=== PATIENT | female | born 1985 | race Caucasian/White ===

== ENCOUNTER 2016-12-07 17:11 | Inpatient (IN) | payer OTHER ==
[~2016-12-07] VITALS: Ht 172.7 cm; Wt 62.0 kg
[~2016-12-07 17:11] MED LIST: BACT800T5 PO; CHLO25CA2 PO; IBUP-232 PO; LORA-475 PO; SERT-129 PO; VIST25CA PO; ZIPR20 PO
[2016-12-07 17:44] VITALS: BP 89/54; PULSE 93; RESP 18; TEMP 98.1; O2SAT 96
[2016-12-07] MEDS ORDERED: SODIUM CHLOR 0.9% 1000 ML INJ 1,000 ML IV ONE (17:45)
[2016-12-07] MEDS ORDERED: SODIUM CHLORIDE 0.9% FLUSH 5 ML FLUSH IVF PRN (17:45)
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
[2016-12-07 18:50] VITALS: BP 99/64; PULSE 95; RESP 18; O2SAT 98
[2016-12-07 19:36] VITALS: BP 99/64; PULSE 105; RESP 20; O2SAT 97
[2016-12-07 19:50] VITALS: PULSE 105; RESP 20; O2SAT 97
[2016-12-07 19:59] LABS: BASOPHIL % 0.4 % (0.0-2.0); EOSINOPHIL # 0.1 TH/MM3 (0-0.4); EOSINOPHIL % 1.5 % (0.0-4.0); HEMATOCRIT 37.8 % (35.0-46.0); LYMPHOCYTE # 1.5 TH/MM3 (1.0-4.8); MEAN CELL VOLUME 93.9 FL (80.0-100.0); MEAN CORPUSCULAR HEMOGLOBIN 32.7 PG (27.0-34.0); MEAN CORPUSCULAR HGB CONC 34.8 % (32.0-36.0); MONO % 5.3 % (0.0-8.0); NEUT % 71.8 % (16.0-70.0); PLATELET COUNT 204 TH/MM3 (150-450); RED BLOOD COUNT 4.03 MIL/MM3 (4.00-5.30); RED CELL DISTRIBUTION WIDTH 13.3 % (11.6-17.2)
[2016-12-07 20:01] LABS: HEMO FLAGS AUTO DIFF
[2016-12-07 20:13] LABS: BLOOD, URINE NEG (NEG); GLUCOSE,URINE NEG (NEG); KETONE, URINE NEG (NEG); NITRITE,URINE NEG (NEG); PH, URINE 6.5 (5.0-8.5); SQUAMOUS EPITHELIAL CELL URINE 1 /hpf (0-5); URINE COLOR LIGHT-YELLOW (YELLW/STRAW)
[2016-12-07 20:14] LABS: COMMENT (UR) CATH-CULT NOT IND; CULTURE IF INDICATED CATH CULTURE NOT IND
[2016-12-07 20:15] LABS: ANION GAP 13 MEQ/L (5-15); AST (GOT) 326 U/L (15-37); BICARBONATE 25.2 MEQ/L (21.0-32.0); BLOOD UREA NITROGEN 6 MG/DL (7-18); CHLORIDE 105 MEQ/L (98-107); GLOMERULAR FILTRATION RATE 106 ML/MIN (>89); POTASSIUM 3.7 MEQ/L (3.5-5.1); SODIUM (NA) 143 MEQ/L (136-145)
--- NOTE | 2016-12-07 20:16 | RADRPT ---
EXAM DATE/TIME: 12/07/2016 20:06 [place] COMPARISON: CT BRAIN W/O CONTRAST, June 10, 2015, 2:16. INDICATIONS : Altered mental status, possible overdose. RADIATION DOSE: 51.26 CTDIvol (mGy) MEDICAL HISTORY : None SURGICAL HISTORY : None. ENCOUNTER: Initial ACUITY: 1 day PAIN SCALE: Non-responsive LOCATION: Bilateral head TECHNIQUE: Multiple contiguous axial images were obtained of the head. Using automated exposure control and adj ustment of the mA and/or kV according to patient size, radiation dose was kept as low as reasonably a chievable to obtain optimal diagnostic quality images. FINDINGS: CEREBRUM: The ventricles are normal for age. No evidence of midline shift, mass lesion, hemorrhage or acute in farction. No extra-axial fluid collections are seen. POSTERIOR FOSSA: The cerebellum and brainstem are intact. The 4th ventricle is midline. The cerebellopontine angle i s unremarkable. EXTRACRANIAL: The visualized portion of the orbits is intact. SKULL: The calvaria is intact. No evidence of skull fracture. CONCLUSION: Unremarkable noncontrast CT. Ruddy Maguire MD on December 07, 2016 at 20:14 Board Certified Radiologist. This report was verified electronically.
[2016-12-07 20:18] LABS: ALKALINE PHOSPHATASE 111 U/L (45-117); ALT (GPT) 280 U/L (10-53); TOTAL BILIRUBIN ADULT 0.7 MG/DL (0.2-1.0)
[2016-12-07 20:24] LABS: ACETAMINOPHEN LESS THAN 2.0 MCG/ML (10.0-30.0); APTT (PATIENT) 24.5 SEC (24.3-30.1); INTERNATIONAL NORMALIZED RATIO 0.9 RATIO; PROTHROMBIN TIME - PATIENT 10.2 SEC (9.8-11.6)
[2016-12-07 20:35] LABS: BLOOD GAS BASE EXCESS 3.2 mmol/L (-2-2); BLOOD GAS CARBOXYHEMOGLOBIN 1.9 % (0-4); BLOOD GAS HCO3 27 mmol/L (22-26); BLOOD GAS METHEMOGLOBIN 1.6 % (0-2); BLOOD GAS O2 HGB SATURATION 94 % (90-100); BLOOD GAS OXYGEN CONTENT 15.6 Vol % (12.0-20.0); BLOOD GAS PCO2 43 mmHg (38-42); BLOOD GAS PO2 85 mmHG (61-120); BLOOD GAS TOTAL HGB 11.8 G/DL (12.0-16.0); CRITICAL VALUE NO; DRAW SITE RT RADIAL; FIO2 21 %; NUMBER OF ARTERIAL PUNCTURES 2; OXYGEN DEVICE ROOM AIR; STAT YES; TEMP CORR TO 98.6; ULNAR PULSE PRESENT
[2016-12-07 20:35] LABS: AMPHETAMINE, URINE POS (NEG); BARBITURATES, URINE NEG (NEG); COCAINE, URINE POS (NEG)
[2016-12-07 21:11] LABS: PLATELET ESTIMATE SMEAR NORMAL (NORMAL); PLATELET MORPHOLOGY NORMAL (NORMAL); SCAN/DIFF AUTO DIFF CONFIRMED
[2016-12-07] MEDS ORDERED: NALOXONE HCL 0.4 MG/ML AMP IV PRN (21:45)
[2016-12-07] MEDS ORDERED: SODIUM CHLORIDE 0.9% FLUSH 5 ML FLUSH FLUSH PRN (21:45)
[2016-12-07 23:15] VITALS: BP 107/78; PULSE 92; RESP 20; O2SAT 98
[2016-12-08] VITALS (7 sets, daily range): BP systolic 102–114; BP diastolic 62–71; PULSE 85–99; RESP 17–20; TEMP 98.2–99; O2SAT 96–98
[2016-12-08] MEDS: SODIUM CHLOR 0.9% 1000 ML INJ 1,000 ML IV SCH ×2 (01:29→09:21)
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
[2016-12-08 05:46] LABS: BASOPHIL % 0.4 % (0.0-2.0); EOSINOPHIL % 0.6 % (0.0-4.0); HEMATOCRIT 33.9 % (35.0-46.0); HEMO FLAGS DIFF FINAL; LYMPH % 20.2 % (9.0-44.0); LYMPHOCYTE # 1.1 TH/MM3 (1.0-4.8); MEAN CELL VOLUME 94.2 FL (80.0-100.0); MEAN CORPUSCULAR HEMOGLOBIN 32.2 PG (27.0-34.0); MEAN CORPUSCULAR HGB CONC 34.2 % (32.0-36.0); MONO % 8.2 % (0.0-8.0); NEUT % 70.6 % (16.0-70.0); PLATELET COUNT 189 TH/MM3 (150-450); RED CELL DISTRIBUTION WIDTH 13.3 % (11.6-17.2); WHITE BLOOD COUNT 5.6 TH/MM3 (4.0-11.0)
[2016-12-08 06:26] LABS: ALKALINE PHOSPHATASE 93 U/L (45-117); ALT (GPT) 215 U/L (10-53); ANION GAP 8 MEQ/L (5-15); AST (GOT) 233 U/L (15-37); BICARBONATE 26.7 MEQ/L (21.0-32.0); BLOOD UREA NITROGEN 7 MG/DL (7-18); CHLORIDE 109 MEQ/L (98-107); GLOMERULAR FILTRATION RATE 118 ML/MIN (>89); POTASSIUM 3.7 MEQ/L (3.5-5.1); SODIUM (NA) 144 MEQ/L (136-145); TOTAL BILIRUBIN ADULT 0.8 MG/DL (0.2-1.0)
[2016-12-08] MEDS ORDERED: FLUMAZENIL 1 MG/10 ML VIAL IV PUSH PRN (08:45)
[2016-12-08] MEDS ORDERED: LORazepam 2 MG TAB PO PRN (08:45)
[2016-12-08] MEDS ORDERED: MAGNESIUM HYDROXIDE SUSP 30 ML CUP PO PRN ×2 (08:45)
[2016-12-08] MEDS ORDERED: LORazepam 2 MG/ML VIAL IV PUSH PRN ×4 (08:45)
[2016-12-08] MEDS ORDERED: CALCIUM CARBONATE 500 MG CHEWABLE TAB CHEW PRN (08:45)
[2016-12-08] MEDS ORDERED: DOCUSATE SODIUM 50 MG/SENNA 8.6 MG TAB PO PRN (08:45)
[2016-12-08] MEDS ORDERED: LORazepam 1 MG TAB PO PRN (08:45)
[2016-12-08] MEDS ORDERED: DOCUSATE SODIUM 100 MG CAP PO PRN ×2 (08:45)
[2016-12-08] MEDS ORDERED: HALOPERIDOL LACTATE 5 MG/ML AMP IM PRN (08:45)
[2016-12-08] MEDS ORDERED: ALUMINUM/MAGNESIUM/SIMETH 30 ML CUP PO PRN (08:45)
[2016-12-08] MEDS ORDERED: ONDANSETRON HCL 4 MG/2 ML VIAL IV PRN (08:45)
[2016-12-08] MEDS ORDERED: ONDANSETRON HCL 4 MG/2 ML VIAL IVP PRN (08:45)
[2016-12-08] MEDS ORDERED: BISACODYL 10 MG SUPP PR PRN (08:45)
[2016-12-08] MEDS ORDERED: IBUPROFEN 400 MG TAB PO PRN (08:45)
[2016-12-08] MEDS ORDERED: MULTIVITAMINS/MINERALS THERAPEUTIC TAB PO SCH (09:00)
[2016-12-08] MEDS ORDERED: SODIUM CHLORIDE 0.9% FLUSH 5 ML FLUSH FLUSH SCH (09:00)
[2016-12-08] MEDS ORDERED: THIAMINE HCL 100 MG TAB PO SCH (09:00)
[2016-12-08] MEDS ORDERED: FOLIC ACID 1 MG TAB PO SCH (09:00)
[2016-12-08] MEDS ORDERED: VITA100T2 PO (11:16)
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
--- NOTE | 2016-12-08 14:12 | EKG ---
Date Performed: 12/07/2016 Time Performed: 19:34:56 PTAGE: 31 years EKG: Sinus rhythm BORDERLINE RIGHT AXIS DEVIATION BORDERLINE ECG Since PREVIOUS TRACING , no significant change noted PREVIOUS TRACIN09/28/2016 17.44 DOCTOR: Luciano Ashby Interpretating Date/Time 12/08/2016 14:02:24
== END 2016-12-08 11:48 | DRG 93 ==
LOC: NEPA 17:11 → NEDA 21:40 → NEPGCP 12-08 02:55
PROVIDERS: ADMIT Internal Medicine; ATTEND Internal Medicine
DX: G92 Toxic encephalopathy (principal); I95.9 Hypotension, unspecified; F10.20 Alcohol dependence, uncomplicated; F11.10 Opioid abuse, uncomplicated; F14.10 Cocaine abuse, uncomplicated; F19.10 Other psychoactive substance abuse, uncomplicated; Y90.6 Blood alcohol level of 120-199 mg/100 ml; R74.0 Nonspecific elevation of levels of transaminase and lactic acid dehydrogenase [LDH]; F41.9 Anxiety disorder, unspecified; F32.9 Major depressive disorder, single episode, unspecified; S00.81XA Abrasion of other part of head, initial encounter; F15.10 Other stimulant abuse, uncomplicated; Z98.82 Breast implant status; Z91.5 Personal history of self-harm
CPT/HCPCS: 36600; 70450; 80053; 80074; 80307; 80320; 80329; 81001; 82805; 84703; 85025; 85610; 85730; 93005; 96374; G0480; J7030; P9612

== ENCOUNTER 2017-02-21 13:43 | Emergency (ER) | payer OTHER ==
[~2017-02-21] VITALS: Ht 172.7 cm; Wt 65.0 kg
[~2017-02-21 13:43] MED LIST changes: +VITA100T2 PO
[2017-02-21 13:45] VITALS: BP 119/75; PULSE 104; RESP 20; TEMP 97.8; O2SAT 95
[2017-02-21 13:50] VITALS: BP 104/66; PULSE 83; RESP 15; TEMP 98.4; O2SAT 97
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
== END 2017-02-21 16:37 | disposition home or self-care (01) ==
LOC: NEPE 13:43
DX: R07.81 Pleurodynia (principal); M53.3 Sacrococcygeal disorders, not elsewhere classified; Y09 Assault by unspecified means
CPT/HCPCS: 71010; 71101; 71120; 72220; 84703; 99283

== ENCOUNTER 2017-05-08 10:04 | Emergency (ER) | payer SELFPAY ==
[~2017-05-08] VITALS: Ht 172.7 cm; Wt 65.0 kg
[2017-05-08] MEDS ORDERED: SODIUM CHLOR 0.9% 1000 ML INJ 1,000 ML IV ONE (10:08)
[2017-05-08 10:12] VITALS: BP 121/77; PULSE 90; RESP 16; RESP 18; TEMP 98.2; O2SAT 98; O2SAT 99
[2017-05-08] MEDS ORDERED: SODIUM CHLORIDE 0.9% FLUSH 10 ML FLUSH IVF PRN (10:15)
[2017-05-08] MEDS ORDERED: METOCLOPRAMIDE HCL 10 MG/2 ML VIAL IV PUSH ONE (10:45)
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
[2017-05-08 10:47] LABS: AUTOMATED NEUTROPHIL # 2.7 TH/MM3 (1.8-7.7); BASOPHIL % 0.9 % (0.0-2.0); HEMATOCRIT 35.4 % (35.0-46.0); HEMO FLAGS DIFF FINAL; LYMPH % 32.7 % (9.0-44.0); LYMPHOCYTE # 1.6 TH/MM3 (1.0-4.8); MEAN CELL VOLUME 94.8 FL (80.0-100.0); MEAN CORPUSCULAR HEMOGLOBIN 30.8 PG (27.0-34.0); MEAN CORPUSCULAR HGB CONC 32.5 % (32.0-36.0); MONO % 10.3 % (0.0-8.0); NEUT % 55.1 % (16.0-70.0); PLATELET COUNT 239 TH/MM3 (150-450); RED BLOOD COUNT 3.73 MIL/MM3 (4.00-5.30); RED CELL DISTRIBUTION WIDTH 13.7 % (11.6-17.2); WHITE BLOOD COUNT 4.9 TH/MM3 (4.0-11.0)
[2017-05-08 10:58] LABS: AMPHETAMINE, URINE NEG (NEG); BARBITURATES, URINE NEG (NEG); BLOOD, URINE NEG (NEG); COCAINE, URINE POS (NEG); GLUCOSE,URINE NEG (NEG); KETONE, URINE NEG (NEG); NITRITE,URINE NEG (NEG); SQUAMOUS EPITHELIAL CELL URINE <1 /hpf (0-5); TRANSITIONAL EPI CELLS, URINE <1 /hpf; URINE COLOR LIGHT-YELLOW (YELLW/STRAW)
[2017-05-08 10:59] LABS: COMMENT (UR) CATH-CULT NOT IND; CULTURE IF INDICATED CATH CULTURE NOT IND
[2017-05-08 11:11] LABS: ALT (GPT) 143 U/L (10-53)
[2017-05-08 11:13] LABS: ACETAMINOPHEN LESS THAN 2.0 MCG/ML (10.0-30.0); ALKALINE PHOSPHATASE 85 U/L (45-117); TOTAL BILIRUBIN ADULT 0.7 MG/DL (0.2-1.0)
[2017-05-08 11:20] LABS: ANION GAP 13 MEQ/L (5-15); AST (GOT) 178 U/L (15-37); BICARBONATE 25.1 MEQ/L (21.0-32.0); BLOOD UREA NITROGEN 9 MG/DL (7-18); CHLORIDE 103 MEQ/L (98-107); GLOMERULAR FILTRATION RATE 90 ML/MIN (>89); SODIUM (NA) 141 MEQ/L (136-145)
[2017-05-08 11:25] VITALS: BP 111/72; PULSE 75; RESP 18; O2SAT 100
[2017-05-08 11:26] LABS: POTASSIUM 3.8 MEQ/L (3.5-5.1)
[2017-05-08 13:27] VITALS: BP 112/72; PULSE 78; RESP 18; O2SAT 98
[2017-05-08 14:43] VITALS: BP 127/85; TEMP 98.3
--- NOTE | 2017-05-09 09:47 | EKG ---
Date Performed: 05/08/2017 Time Performed: 10:13:36 PTAGE: 31 years EKG: Sinus rhythm INCOMPLETE RIGHT BUNDLE BRANCH BLOCK PROLONGED QT INTERVAL ABNORMAL ECG PREVIOUS TRACING : 12/07/2016 19.34 DOCTOR: Zackary Yoon Interpretating Date/Time 05/09/2017 09:38:37
== END 2017-05-08 15:04 | disposition home or self-care (01) ==
LOC: NEPC 10:04
DX: F19.129 Other psychoactive substance abuse with intoxication, unspecified (principal); I45.10 Unspecified right bundle-branch block; Z72.89 Other problems related to lifestyle; R11.0 Nausea
CPT/HCPCS: 80053; 80307; 81001; 84703; 85025; 93005; 96374; 99284; J2765; J7030

== ENCOUNTER 2017-06-03 18:27 | Emergency (ER) | payer SELFPAY | END 2017-06-03 19:00 | disposition left against medical advice (07) | LOC: NEDAMB 18:27 | DX: M25.531 Pain in right wrist (principal); Z53.29 Procedure and treatment not carried out because of patient's decision for other reasons | CPT/HCPCS: 99281 ==

== ENCOUNTER 2017-12-01 06:22 | Inpatient (IN) | payer SELFPAY ==
[~2017-12-01] VITALS: Ht 172.7 cm; Wt 71.2 kg
[2017-12-01] VITALS (11 sets, daily range): BP systolic 103–127; BP diastolic 58–78; PULSE 81–112; RESP 16–20; TEMP 98.3–103.1; O2SAT 97–100
[2017-12-01] MEDS ORDERED: SODIUM CHLOR 0.9% 1000 ML INJ 800 ML IV ONE (06:34)
[2017-12-01] MEDS ORDERED: SODIUM CHLOR 0.9% 1000 ML INJ 1,000 ML IV ONE ×2 (06:34→13:00)
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
[2017-12-01] MEDS ORDERED: ONDANSETRON HCL 4 MG/2 ML VIAL IV PUSH ONE ×2 (06:45→13:00)
[2017-12-01] MEDS ORDERED: VANCOMYCIN INJ 1,000 MG in SODIUM CHLOR 0.9% 250 ML INJ 250 ML IV ONE (06:45)
[2017-12-01] MEDS ORDERED: ACETAMINOPHEN 325 MG TAB PO ONE ×2 (06:45→14:15)
[2017-12-01 07:02] LABS: AUTOMATED NEUTROPHIL # 4.3 TH/MM3 (1.8-7.7); BASOPHIL % 0.5 % (0.0-2.0); EOSINOPHIL % 0.1 % (0.0-4.0); HEMATOCRIT 37.8 % (35.0-46.0); HEMOGLOBIN 12.7 GM/DL (11.6-15.3); LYMPH % 10.5 % (9.0-44.0); LYMPHOCYTE # 0.5 TH/MM3 (1.0-4.8); MEAN CELL VOLUME 87.9 FL (80.0-100.0); MEAN CORPUSCULAR HEMOGLOBIN 29.5 PG (27.0-34.0); MEAN CORPUSCULAR HGB CONC 33.6 % (32.0-36.0); MEAN PLATELET VOLUME 7.7 FL (7.0-11.0); MONO % 6.7 % (0.0-8.0); MONOCYTE # 0.3 TH/MM3 (0-0.9); NEUT % 82.2 % (16.0-70.0); PLATELET COUNT 140 TH/MM3 (150-450); WHITE BLOOD COUNT 5.1 TH/MM3 (4.0-11.0)
[2017-12-01 07:10] LABS: CHLORIDE 98 MEQ/L (98-107); SODIUM (NA) 132 MEQ/L (136-145)
[2017-12-01 07:13] LABS: ALBUMIN 3.2 GM/DL (3.4-5.0); BICARBONATE 25.6 MEQ/L (21.0-32.0); BLOOD UREA NITROGEN 9 MG/DL (7-18); CALCIUM 8.5 MG/DL (8.5-10.1); GLUCOSE,RANDOM 132 MG/DL (74-106); INTERNATIONAL NORMALIZED RATIO 1.1 RATIO
[2017-12-01 07:16] LABS: ALT (GPT) 33 U/L (10-53); AST (GOT) 47 U/L (15-37); CREATININE 0.64 MG/DL (0.50-1.00); GLOMERULAR FILTRATION RATE 107 ML/MIN (>89)
[2017-12-01 07:18] LABS: TOTAL BILIRUBIN ADULT 0.5 MG/DL (0.2-1.0); TOTAL PROTEIN 7.5 GM/DL (6.4-8.2)
[2017-12-01 07:19] LABS: ALKALINE PHOSPHATASE 122 U/L (45-117)
[2017-12-01 07:21] LABS: TROPONIN I LESS THAN 0.02 NG/ML (0.02-0.05)
[2017-12-01] MEDS ORDERED: HYDROmorphone HCL PF 2 MG/ML VIAL IV PUSH ONE ×2 (07:30→09:30)
--- NOTE | 2017-12-01 08:28 | RADRPT ---
EXAM DATE/TIME: 12/01/2017 08:13 [facility] COMPARISON: CT BRAIN W/O CONTRAST, December 07, 2016, 20:06. INDICATIONS : Cephalgia. RADIATION DOSE: 63.84 CTDIvol (mGy) MEDICAL HISTORY : Alcohol and drug abuse. SURGICAL HISTORY : Tubal ligation. ENCOUNTER: Initial ACUITY: 3 days PAIN SCALE: 10/10 LOCATION: cranial TECHNIQUE: Multiple contiguous axial images were obtained of the head. Using automated exposure control and adj ustment of the mA and/or kV according to patient size, radiation dose was kept as low as reasonably a chievable to obtain optimal diagnostic quality images. DICOM format image data is available electro nically for review and comparison. FINDINGS: CEREBRUM: The ventricles are normal for age. No evidence of midline shift, mass lesion, hemorrhage or acute in farction. No extra-axial fluid collections are seen. POSTERIOR FOSSA: The cerebellum and brainstem are intact. The 4th ventricle is midline. The cerebellopontine angle i s unremarkable. EXTRACRANIAL: The visualized portion of the orbits is intact. SKULL: The calvaria is intact. No evidence of skull fracture. CONCLUSION: No acute disease. Jacky Guevara MD on December 01, 2017 at 8:25 Board Certified Radiologist. This report was verified electronically.
--- NOTE | 2017-12-01 08:33 | RADRPT ---
EXAM DATE/TIME: 12/01/2017 07:58 [facility] COMPARISON: CHEST SINGLE AP, February 21, 2017, 15:04. INDICATIONS : Fever. MEDICAL HISTORY : None. SURGICAL HISTORY : right clavicle ENCOUNTER: Initial ACUITY: 1 day PAIN SCORE: 0/10 LOCATION: Bilateral chest FINDINGS: Minimal bilateral perihilar infiltrates are noted consistent with viral pneumonitis or minimal pulmon marbin vascular congestion. Clinical correlation is recommended. The heart is stable. CONCLUSION: Minimal bilateral perihilar infiltrates consistent with viral pneumonitis or minimal pulmonary vascul ar congestion. Clinical correlation is recommended. Jacky Guevara MD on December 01, 2017 at 8:29 Board Certified Radiologist. This report was verified electronically.
--- NOTE | 2017-12-01 08:36 | PD ---
Data Data Last Documented VS Vital Signs Date Time Temp Pulse Resp B/P (MAP) Pulse Ox O2 Delivery O2 Flow Rate FiO2 12/01/17 11:04 16 12/01/17 08:40 100.6 90 124/69 (87) 100 Room Air Orders Orders Sepsis Workup Initiated (12/01/17 ) Electrocardiogram (12/01/17 06:34) Complete Blood Count With Diff (12/01/17 06:34) Comprehensive Metabolic Panel (12/01/17 06:34) Prothrombin Time / Inr (Pt) (12/01/17 06:34) Act Partial Throm Time (Ptt) (12/01/17 06:34) Lactic Acid Sepsis Protocol (12/01/17 06:34) Ckmb (Isoenzyme) Profile (12/01/17 06:34) Troponin I (12/01/17 06:34) Urinalysis - C+S If Indicated (12/01/17 06:34) Blood Culture (12/01/17 06:34) Chest, Single Ap (12/01/17 06:34) Blood Glucose (12/01/17 06:34) Ecg Monitoring (12/01/17 06:34) Iv Access Insert/Monitor (12/01/17 06:34) Oximetry (12/01/17 06:34) Oxygen Administration (12/01/17 06:34) Acetaminophen (Tylenol) (12/01/17 06:45) Ondansetron Inj (Zofran Inj) (12/01/17 06:45) Sodium Chlor 0.9% 1000 Ml Inj (Ns 1000 M (12/01/17 06:34) Sodium Chlor 0.9% 1000 Ml Inj (Ns 1000 M (12/01/17 06:34) Westergren Sedimentation Rate (12/01/17 06:34) Influenzae A/B Antigen (12/01/17 06:34) Shoulder, Complete (>2vws) (12/01/17 ) Shoulder, Complete (>2vws) (12/01/17 ) Ct Brain W/O Iv Contrast(Rout) (12/01/17 ) Mri C Spine W&W/O Contrast (12/01/17 ) Mri L Spine W&W/O Contrast (12/01/17 ) Mri T Spine W & W/O Contrast (12/01/17 ) Mri Joint Shoulder W&W/O Contr (12/01/17 ) Mri Joint Shoulder W&W/O Contr (12/01/17 ) Vancomycin Inj (Vancomycin Inj) (12/01/17 06:45) Hydromorphone Pf Inj (Dilaudid Pf Inj) (12/01/17 07:30) Piperacil-Tazo 4.5 Gm Premix (Zosyn 4.5 (12/01/17 08:45) Hydromorphone Pf Inj (Dilaudid Pf Inj) (12/01/17 09:30) Ceftriaxone Inj (Rocephin Inj) (12/01/17 11:45) Gadodiamide Pf Inj (Omniscan Pf Inj) (12/01/17 10:30) Admit Order (Ed Use Only) (12/01/17 ) Surgical Dental Assistant / Telemetry [id number].[id number] (12/01/17 12:47) Vital Signs (Adult) Q4H (12/01/17 12:47) Diet Heart Healthy (12/01/17 Lunch) Activity Bed Rest (12/01/17 12:47) Ondansetron Inj (Zofran Inj) (12/01/17 13:00) Labs Laboratory Tests Test 12/01/17 06:40 White Blood Count 5.1 TH/MM3 Red Blood Count 4.30 MIL/MM3 Hemoglobin 12.7 GM/DL Hematocrit 37.8 % Mean Corpuscular Volume 87.9 FL Mean Corpuscular Hemoglobin 29.5 PG Mean Corpuscular Hemoglobin Concent 33.6 % Red Cell Distribution Width 12.0 % Platelet Count 140 TH/MM3 Mean Platelet Volume 7.7 FL Neutrophils (%) (Auto) 82.2 % Lymphocytes (%) (Auto) 10.5 % Monocytes (%) (Auto) 6.7 % Eosinophils (%) (Auto) 0.1 % Basophils (%) (Auto) 0.5 % Neutrophils # (Auto) 4.3 TH/MM3 Lymphocytes # (Auto) 0.5 TH/MM3 Monocytes # (Auto) 0.3 TH/MM3 Eosinophils # (Auto) 0.0 TH/MM3 Basophils # (Auto) 0.0 TH/MM3 CBC Comment AUTO DIFF Differential Comment AUTO DIFF CONFIRMED Erythrocyte Sedimentation Rate 45 mm/hr Prothrombin Time 11.0 SEC Prothromb Time International Ratio 1.1 RATIO Activated Partial Thromboplast Time 31.4 SEC Blood Urea Nitrogen 9 MG/DL Creatinine 0.64 MG/DL Random Glucose 132 MG/DL Total Protein 7.5 GM/DL Albumin 3.2 GM/DL Calcium Level 8.5 MG/DL Alkaline Phosphatase 122 U/L Aspartate Amino Transf (AST/SGOT) 47 U/L Alanine Aminotransferase (ALT/SGPT) 33 U/L Total Bilirubin 0.5 MG/DL Sodium Level 132 MEQ/L Potassium Level 3.8 MEQ/L Chloride Level 98 MEQ/L Carbon Dioxide Level 25.6 MEQ/L Anion Gap 8 MEQ/L Estimat Glomerular Filtration Rate 107 ML/MIN Lactic Acid Level 1.1 mmol/L Total Creatine Kinase 39 U/L Troponin I LESS THAN 0.02 NG/ML MDM Medical Record Reviewed: Yes Supervised Visit with ROSAMARIA: No Narrative Course CBC & BMP Diagram 12/01/17 06:40 Total Protein 7.5, Albumin 3.2 L, Calcium Level 8.5, Alkaline Phosphatase 122 H , Aspartate Amino Transf (AST/SGOT) 47 H, Alanine Aminotransferase (ALT/SGPT) 33 , Total Bilirubin 0.5 ESR 45 927AM pt unable to lay on MRI table 2/2 pain, 1mg iv hydromorphone added Last 24 hours Impressions Chest X-Ray 12/01/17 0634 Signed Impressions: Service Date/Time: Friday, December 01, 2017 07:58 - CONCLUSION: Minimal bilateral perihilar infiltrates consistent with viral pneumonitis or minimal pulmonary vascular congestion. Clinical correlation is recommended. Jacky Guevara MD Thoracic Spine MRI 12/01/17 0000 Signed Impressions: Service Date/Time: Friday, December 01, 2017 09:07 - CONCLUSION: 1. Negative MRI of the thoracic spine Hernan Arroyo MD Shoulder X-Ray 12/01/17 0000 Signed Impressions: Service Date/Time: Friday, December 01, 2017 07:58 - CONCLUSION: No acute disease. Jacky Guevara MD Shoulder X-Ray 12/01/17 0000 Signed Impressions: Service Date/Time: Friday, December 01, 2017 07:58 - CONCLUSION: No acute fracture or dislocation. Jacky Guevara MD Lumbar Spine MRI 12/01/17 0000 Signed Impressions: Service Date/Time: Friday, December 01, 2017 09:07 - CONCLUSION: 1. Small central protrusions as described above. There is no evidence of abscess. Hernan Arroyo MD Head CT 12/01/17 0000 Signed Impressions: Service Date/Time: Friday, December 01, 2017 08:13 - CONCLUSION: No acute disease. Jacky Guevara MD Cervical Spine MRI 12/01/17 0000 Signed Impressions: Service Date/Time: Friday, December 01, 2017 09:07 - CONCLUSION: Small central protrusion at C5-C6 without stenosis. There is no evidence of abscess. Hernan Arroyo MD case d/w Kaleb Elizabeth for [facility] Vanco and Zosyn started Rocephin started for possible epidural abscess however we see no sign on MR studies Sepsis Criteria SIRS Criteria (2 or more): Temp > 100.9 or < 96.8, Heart rate over 90 Diagnosis Primary Impression: SIRS (systemic inflammatory response syndrome) Additional Impression: IVDU (intravenous drug user) Admitting Information Admitting Physician Requests: Observation Fredy Gamble MD Dec 01, 2017 08:36
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
--- NOTE | 2017-12-01 08:39 | RADRPT ---
EXAM DATE/TIME: 12/01/2017 07:58 [facility] COMPARISON: SHOULDER LEFT COMPLETE (>2VWS), October 01, 2016, 12:29. INDICATIONS : Left shoulder pain, no known injury. MEDICAL HISTORY : None. SURGICAL HISTORY : None. ENCOUNTER: Initial ACUITY: 1 day PAIN SCORE: 10/10 LOCATION: Left shoulder FINDINGS: Multiple view examination of the left shoulder demonstrates no evidence of fracture or dislocation. The glenohumeral and acromioclavicular joints are maintained. There is normal range of motion betwee n internal and external rotation. Bony mineralization is normal. CONCLUSION: No acute disease. Jacky Guevara MD on December 01, 2017 at 8:36 Board Certified Radiologist. This report was verified electronically.
[2017-12-01] MEDS ORDERED: PIPERACIL-TAZO 4.5 GM PREMIX 100 ML IV ONE (08:45)
--- NOTE | 2017-12-01 09:29 | EKG ---
Date Performed: 12/01/2017 Time Performed: 07:11:30 PTAGE: 32 years EKG: SINUS TACHYCARDIA MODERATE INTRAVENTRICULAR CONDUCTION DELAY NONSPECIFIC T-WAVE ABNORMALITY ABNORMAL RHYTHM ECG PREVIOUS TRACING : 05/08/2017 10.13 DOCTOR: Zackary Yoon Interpretating Date/Time 12/01/2017 09:28:55
[2017-12-01] MEDS ORDERED: GADODIAMIDE PF 287 MG/ML 5 ML VIAL (for RAD MRI) IV PUSH ONE (10:30)
[2017-12-01] MEDS ORDERED: cefTRIAXone INJ 2,000 MG in SODIUM CHLORIDE 0.9% INJ 100 ML IV ONE (11:45)
--- NOTE | 2017-12-01 11:56 | RADRPT ---
EXAM DATE/TIME: 12/01/2017 09:07 [facility] COMPARISON: No previous studies available for comparison. INDICATIONS : Abscess. Hx od IVDA. CONTRAST: 14 cc Omniscan (gadodiamide) IV MEDICAL HISTORY : None. SURGICAL HISTORY : Rt shoulder. ENCOUNTER: Initial ACUITY: 2 day PAIN SCORE: 4/10 LOCATION: back TECHNIQUE: Multiplanar multisequence MRI of the thoracic spine was performed. FINDINGS: VERTEBRA: Normal vertebral body height. Homogeneous marrow signal. ALIGNMENT: Normal. CORD: Normal position and configuration. POST CONTRAST: No abnormal areas of contrast enhancement seen. T1-T2: Normal. T2-T3: The thecal sac has a normal diameter. No evidence of disc bulge or protrusion. T3-T4: The thecal sac has a normal diameter. No evidence of disc bulge or protrusion. T4-T5: The thecal sac has a normal diameter. No evidence of disc bulge or protrusion. T5-T6: The thecal sac has a normal diameter. No evidence of disc bulge or protrusion. T6-T7: The thecal sac has a normal diameter. No evidence of disc bulge or protrusion. T7-T8: The thecal sac has a normal diameter. No evidence of disc bulge or protrusion. T8-T9: The thecal sac has a normal diameter. No evidence of disc bulge or protrusion. T9-T10: The thecal sac has a normal diameter. No evidence of disc bulge or protrusion. T10-T11: The thecal sac has a normal diameter. No evidence of disc bulge or protrusion. T11-T12: The thecal sac has a normal diameter. No evidence of disc bulge or protrusion. T12-L1: The thecal sac has a normal diameter. No evidence of disc bulge or protrusion. CONCLUSION: 1. Negative MRI of the thoracic spine Hernan Arroyo MD on December 01, 2017 at 11:49 Board Certified Radiologist. This report was verified electronically.
--- NOTE | 2017-12-01 11:58 | RADRPT ---
EXAM DATE/TIME: 12/01/2017 09:07 [facility] COMPARISON: No previous studies available for comparison. INDICATIONS : Abscess. Hx of IVDA. CONTRAST: 14 cc Omniscan (gadodiamide) IV MEDICAL HISTORY : None. SURGICAL HISTORY : Rt shoulder. ENCOUNTER: Initial ACUITY: 2 day PAIN SCORE: 4/10 LOCATION: back TECHNIQUE: Multiplanar multisequence MRI of the lumbar spine was performed with and without contrast. FINDINGS: Sagittal images demonstrate normal vertebral body alignment and curvature. No focal areas of marrow r eplacement are identified. The conus terminates normally. Axial images were performed from T12-L1 thr ough L5-S1. T12-L1: No significant abnormalities identified. L1-L2: No significant abnormalities identified. L2-L3: No significant abnormalities identified. L3-L4: A central disc protrusion is present impinging on the thecal sac. There is no significant spinal latha l stenosis. L4-L5: No significant abnormalities identified. L5-S1: A small central protrusion is present impinging on the thecal sac but not significantly deforming the cord. CONCLUSION: 1. Small central protrusions as described above. There is no evidence of abscess. Hernan Arroyo MD on December 01, 2017 at 11:54 Board Certified Radiologist. This report was verified electronically.
--- NOTE | 2017-12-01 12:02 | RADRPT ---
EXAM DATE/TIME: 12/01/2017 09:07 [facility] COMPARISON: No previous studies available for comparison. INDICATIONS : Abscess. Hx IVDA. CONTRAST: 14 cc Omniscan (gadodiamide) IV MEDICAL HISTORY : None. SURGICAL HISTORY : Rt shoulder. ENCOUNTER: Initial ACUITY: 2 day PAIN SCORE: 4/10 LOCATION: neck TECHNIQUE: Multiplanar, multisequence MRI examination of the cervical spine was performed. FINDINGS: MRI of the cervical spine was performed in sagittal and axial planes. There is straightening of the n ormal cervical lordosis which may be secondary positioning or spasm. No focal areas of marrow replace ment are identified. The craniocervical junction appears normal. The cord itself is normal in caliber and signal intensity. Axial images were performed from C2-C3 through C7-T1. Following the administra tion of contrast no abnormal enhancement is identified. C2-C3: No significant abnormalities identified. C3-C4: No significant abnormalities identified. C4-C5: No significant abnormalities identified. C5-C6: A central disc protrusion is present impinging on the thecal sac. There is no significant spinal latha l stenosis. C6-C7: No significant abnormalities identified. C7-T1: No significant abnormalities identified. CONCLUSION: Small central protrusion at C5-C6 without stenosis. There is no evidence of abscess. Hernan Arroyo MD on December 01, 2017 at 11:56 Board Certified Radiologist. This report was verified electronically.
[2017-12-01] MEDS ORDERED: diphenhydrAMINE HCL 50 MG/ML VIAL IV PUSH ONE (13:00)
[2017-12-01] MEDS ORDERED: KETOROLAC TROMETHAMINE 30 MG/ML (IVP) VIAL IV PUSH ONE (13:00)
[2017-12-01] MEDS ORDERED: PROCHLORPERAZINE INJ 10 MG/2 ML VIAL IV PUSH ONE (13:00)
[2017-12-01] MEDS ORDERED: NALOXONE HCL 0.4 MG/ML AMP IV PUSH PRN (14:45)
--- NOTE | 2017-12-01 14:54 | HHI.HP ---
HPI Service [facility] Primary Care Physician No Primary Care Physician Admission Diagnosis SIRS; Poss PNA; IVDU Diagnoses: Chief Complaint: Reviewed in the EMR Travel History International Travel<30 Days: No Contact w/Intl Traveler <30 Da: No Traveled to Known Affected Are: No History of Present Illness This patient is a 32-year-old female with minimal past medical history. She reports 3 days of nausea, vomiting, chills and myalgias worsen the left shoulder and left leg. She had a headache. She tried some TheraFlu for 1 day without improvement. She came to the emergency room where she was febrile temperature was 102. Patient does not have a white cell count but does have cough and congestion on exam as well as x-ray that is concerning for pneumonitis. Patient has a negative flu and has been recommended for observation due to her fever with history of drug use. She also reports left shoulder pain and inability to move the shoulder. Spinal x-rays are negative and CT of the head and neck are negative. Patient recommended for further evaluation treatment Review of Systems Constitutional: DENIES: Diaphoretic episodes, Fatigue, Fever, Weight gain, Weight loss, Chills, Dizziness, Change in appetite, Night Sweats Endocrine: DENIES: Abnorml menstrual pattern, Heat/cold intolerance, Polydipsia , Polyuria, Polyphagia Eyes: DENIES: Blurred vision, Diplopia, Eye inflammation, Eye pain, Vision loss , Photosensitivity, Double Vision Ears, nose, mouth, throat: DENIES: Tinnitus, Hearing loss, Vertigo, Nasal discharge, Oral lesions, Throat pain, Hoarseness, Ear Pain, Running Nose, Epistaxis, Sinus Pain, Toothache, Odynophagia Respiratory: DENIES: Apneas, Cough, Snoring, Wheezing, Hemoptysis, Sputum production, Shortness of breath Cardiovascular: DENIES: Chest pain, Palpitations, Syncope, Dyspnea on Exertion , PND, Lower Extremity Edema, Orthopnea, Claudication Gastrointestinal: DENIES: Abdominal pain, Black stools, Bloody stools, Constipation, Diarrhea, Nausea, Vomiting, Difficulty Swallowing, Anorexia Genitourinary: DENIES: Abnormal vaginal bleeding, Dysmenorrhea, Dyspareunia, Sexual dysfunction, Urinary frequency, Urinary incontinence, Urgency, Hematuria , Dysuria, Nocturia, Vaginal discharge Musculoskeletal: COMPLAINS OF: Joint pain, DENIES: Muscle aches, Stiffness, Joint Swelling, Back pain, Neck pain Integumentary: DENIES: Abnormal pigmentation, Pruritus, Rash, Nail changes, Breast masses, Breast skin changes, Nipple discharge Hematologic/lymphatic: DENIES: Bruising, Lymphadenopathy Immunologic/allergic: DENIES: Eczema, Urticaria Neurologic: DENIES: Abnormal gait, Headache, Localized weakness, Paresthesias, Seizures, Speech Problems, Tremor, Poor Balance Except as stated in HPI: all other systems reviewed are Neg Past Family Social History Past Medical History Denies Past Surgical History Denies Reported Medications Denies Allergies: Coded Allergies: No Known Allergies (Verified Allergy, Unknown, 12/01/17) Active Ordered Medications Reviewed in the EMR Family History Patient does not know Social History Alcohol daily, IV Dilaudid use illicitly Occasional crack and cocaine Unemployed and not in school Physical Exam Vital Signs Vital Signs Date Time Temp Pulse Resp B/P (MAP) Pulse Ox O2 Delivery O2 Flow Rate FiO2 12/01/17 14:15 102.5 95 16 127/75 (92) 98 12/01/17 14:10 12/01/17 14:05 103.1 110 16 114/72 (86) 99 Room Air 12/01/17 13:05 98 16 103/58 (73) 100 Room Air 12/01/17 12:05 98.3 104 16 114/78 (90) 100 Room Air 12/01/17 11:05 82 16 105/65 (78) 97 Room Air 12/01/17 11:04 16 12/01/17 08:41 16 12/01/17 08:40 100.6 90 16 124/69 (87) 100 Room Air 12/01/17 07:00 102 18 99 Room Air 12/01/17 07:00 102.2 102 18 119/71 (87) 99 Room Air 12/01/17 07:00 99 Room Air 12/01/17 07:00 18 99 Room Air 12/01/17 06:49 102.2 112 18 117/71 (86) 99 Room Air 12/01/17 06:32 18 12/01/17 06:25 102.8 112 18 118/73 (88) 99 Physical Exam GENERAL: This is a well-nourished, well-developed patient, feels ill SKIN: No rashes, ecchymoses or lesions. Cool and dry. HEAD: Atraumatic. Normocephalic. No temporal or scalp tenderness. EYES: Pupils equal round and reactive. Extraocular motions intact. No scleral icterus. No injection or drainage. ENT: Nose without bleeding, purulent drainage or septal hematoma. Throat without erythema, tonsillar hypertrophy or exudate. Uvula midline. Airway patent. NECK: Trachea midline. No JVD or lymphadenopathy. Supple, nontender, no meningeal signs. CARDIOVASCULAR: Regular rate and rhythm without murmurs, gallops, or rubs. RESPIRATORY: Clear to auscultation. Breath sounds equal bilaterally. No wheezes , rales, or rhonchi. GASTROINTESTINAL: Abdomen soft, non-tender, nondistended. No hepato-splenomegaly , or palpable masses. No guarding. MUSCULOSKELETAL: Complaining of left shoulder pain Extremities without clubbing , cyanosis, or edema. No joint tenderness, effusion, or edema noted. No calf tenderness. Negative Homans sign bilaterally. NEUROLOGICAL: Awake and alert. Cranial nerves II through XII intact. Motor and sensory grossly within normal limits. Five out of 5 muscle strength in all muscle groups. Normal speech. Laboratory Laboratory Tests Test 12/01/17 06:40 White Blood Count 5.1 Red Blood Count 4.30 Hemoglobin 12.7 Hematocrit 37.8 Mean Corpuscular Volume 87.9 Mean Corpuscular Hemoglobin 29.5 Mean Corpuscular Hemoglobin Concent 33.6 Red Cell Distribution Width 12.0 Platelet Count 140 Mean Platelet Volume 7.7 Neutrophils (%) (Auto) 82.2 Lymphocytes (%) (Auto) 10.5 Monocytes (%) (Auto) 6.7 Eosinophils (%) (Auto) 0.1 Basophils (%) (Auto) 0.5 Neutrophils # (Auto) 4.3 Lymphocytes # (Auto) 0.5 Monocytes # (Auto) 0.3 Eosinophils # (Auto) 0.0 Basophils # (Auto) 0.0 CBC Comment AUTO DIFF Differential Comment AUTO DIFF CONFIRMED Erythrocyte Sedimentation Rate 45 Prothrombin Time 11.0 Prothromb Time International Ratio 1.1 Activated Partial Thromboplast Time 31.4 Blood Urea Nitrogen 9 Creatinine 0.64 Random Glucose 132 Total Protein 7.5 Albumin 3.2 Calcium Level 8.5 Alkaline Phosphatase 122 Aspartate Amino Transf (AST/SGOT) 47 Alanine Aminotransferase (ALT/SGPT) 33 Total Bilirubin 0.5 Sodium Level 132 Potassium Level 3.8 Chloride Level 98 Carbon Dioxide Level 25.6 Anion Gap 8 Estimat Glomerular Filtration Rate 107 Lactic Acid Level 1.1 Total Creatine Kinase 39 Troponin I LESS THAN 0.02 Date/Time Source Procedure Growth Status 12/01/17 06:30 Blood Peripheral Aerobic Blood Culture Pending Received 12/01/17 06:30 Blood Peripheral Anaerobic Blood Culture Pending Received 12/01/17 06:47 Nasal Washing Influenza Types A,B Antigen (LEE) - Final NEGATIVE FOR FLU A AND B ANTIGEN.... Complete Result Diagram: 12/01/1740 12/01/1740 Imaging Last Impressions Chest X-Ray 12/01/1734 Signed Impressions: Service Date/Time: Friday, December 01, 2017 07:58 - CONCLUSION: Minimal bilateral perihilar infiltrates consistent with viral pneumonitis or minimal pulmonary vascular congestion. Clinical correlation is recommended. Jacky Guevara MD Thoracic Spine MRI 12/01/17 0000 Signed Impressions: Service Date/Time: Friday, December 01, 2017 09:07 - CONCLUSION: 1. Negative MRI of the thoracic spine Hernan Arroyo MD Shoulder X-Ray 12/01/17 0000 Signed Impressions: Service Date/Time: Friday, December 01, 2017 07:58 - CONCLUSION: No acute disease. Jacky Guevara MD Lumbar Spine MRI 12/01/17 0000 Signed Impressions: Service Date/Time: Friday, December 01, 2017 09:07 - CONCLUSION: 1. Small central protrusions as described above. There is no evidence of abscess. Hernan Arroyo MD Head CT 12/01/17 0000 Signed Impressions: Service Date/Time: Friday, December 01, 2017 08:13 - CONCLUSION: No acute disease. Jacky Guevara MD Cervical Spine MRI 12/01/17 0000 Signed Impressions: Service Date/Time: Friday, December 01, 2017 09:07 - CONCLUSION: Small central protrusion at C5-C6 without stenosis. There is no evidence of abscess. MD Sallie Anderson VTE Risk Assessment Caprinjohnny VTE Risk Assessment: Mod/High Risk (score >= 2) Caprini Risk Assessment Model Point Value = 1 Point Value = 2 Point Value = 3 Point Value = 5 Age 41-60 Minor surgery BMI > 25 kg/m2 Swollen legs Varicose veins or History of unexplained or recurrent spontaneous Oral contraceptives or hormone replacement Sepsis (< 1 month) Serious lung disease, including pneumonia (< 1 month) Abnormal pulmonary function Acute myocardial infarction Congestive heart failure (< 1 month) History of inflammatory bowel disease Medical patient at bed rest Age 61-74 Arthroscopic surgery Major open surgery (> 45 min) Laparoscopic surgery (> 45 min) Malignancy Confined to bed (> 72 hours) Immobilizing plaster cast Central venous access Age >= 75 History of VTE Family history of VTE Factor V Leiden Prothrombin [id number] Lupus anticoagulant Anticardiolipin antibodies Elevated serum homocysteine Heparin-induced thrombocytopenia Other congenital or acquired thrombophilia Stroke (< 1 month) Elective arthroplasty Hip, pelvis, or leg fracture Acute spinal cord injury (< 1 month) Prophylaxis Regimen Total Risk Factor Score Risk Level Prophylaxis Regimen 0-1 Low Early ambulation 2 Moderate Order ONE of the following: *Sequential Compression Device (SCD) *Heparin 5000 units SQ BID 3-4 Higher Order ONE of the following medications: *Heparin 5000 units SQ TID *Enoxaparin/Lovenox 40 mg SQ daily (WT < 150 kg, CrCl > 30 mL/min) *Enoxaparin/Lovenox 30 mg SQ daily (WT < 150 kg, CrCl > 10-29 mL/min) *Enoxaparin/Lovenox 30 mg SQ BID (WT < 150 kg, CrCl > 30 mL/min) AND/OR *Sequential Compression Device (SCD) 5 or more Highest Order ONE of the following medications: *Heparin 5000 units SQ TID (Preferred with Epidurals) *Enoxaparin/Lovenox 40 mg SQ daily (WT < 150 kg, CrCl > 30 mL/min) *Enoxaparin/Lovenox 30 mg SQ daily (WT < 150 kg, CrCl > 10-29 mL/min) *Enoxaparin/Lovenox 30 mg SQ BID (WT < 150 kg, CrCl > 30 mL/min) AND *Sequential Compression Device (SCD) Assessment and Plan Problem List: (1) Viral syndrome ICD Code: B34.9 - Viral infection, unspecified Plan: viral pneumonitis may be referred pain to left shoulder nsaids scheduled Follow up cultures (2) IVDU (intravenous drug user) ICD Code: F19.90 - Other psychoactive substance use, unspecified, uncomplicated Status: Acute Plan: No active skin lesions or accesses noted Continue pain management as indicated Assessment and Plan Plan of care to be determined by Hospital course Code Status Full code Dulce Bennett MD Dec 01, 2017 14:54
[2017-12-01] MEDS: SODIUM CHLOR 0.9% 1000 ML INJ 1,000 ML IV SCH (15:56)
[2017-12-01] MEDS: IBUPROFEN 600 MG TAB PO SCH ×2 (16:51→18:14)
[2017-12-01] MEDS: ENOXAPARIN SODIUM 40 MG/0.4 ML SYRINGE SQ SCH (16:52)
[2017-12-01 17:30] LABS: BILIRUBIN, URINE NEG (NEG); BLOOD, URINE NEG (NEG); GLUCOSE,URINE NEG (NEG); KETONE, URINE NEG (NEG); NITRITE,URINE NEG (NEG); URINE LEUKOCYTE ESTERASE NEG (NEG)
[2017-12-01 17:33] LABS: URINE COLOR YELLOW (YELLW/STRAW)
[2017-12-01 17:34] LABS: BACTERIA, URINE OCC /hpf; RENAL EPITHELIAL CELLS 0-5 /hpf; WBC, URINE 0-2 /hpf (0-5)
[2017-12-01] MEDS ORDERED: ACETAMINOPHEN 325 MG TAB PO PRN (18:00)
[2017-12-01] MEDS: SODIUM CHLORIDE 0.9% FLUSH 10 ML FLUSH IV FLUSH SCH (21:00)
[2017-12-02] VITALS (7 sets, daily range): BP systolic 108–140; BP diastolic 5–80; PULSE 63–94; RESP 12–18; TEMP 96.4–98.7; O2SAT 95–100
[2017-12-02] MEDS: IBUPROFEN 600 MG TAB PO SCH ×3 (00:15→12:38)
[2017-12-02] MEDS: SODIUM CHLOR 0.9% 1000 ML INJ 1,000 ML IV SCH ×2 (00:18→11:03)
[2017-12-02] MEDS: ACETAMINOPHEN/HYDROcodone 325 MG/7.5 MG TAB PO PRN ×3 (00:18→20:56)
[2017-12-02 08:28] LABS: AUTOMATED NEUTROPHIL # 6.5 TH/MM3 (1.8-7.7); BASOPHIL # 0.1 TH/MM3 (0-0.2); BASOPHIL % 0.6 % (0.0-2.0); EOSINOPHIL # 0.1 TH/MM3 (0-0.4); EOSINOPHIL % 0.6 % (0.0-4.0); HEMATOCRIT 35.7 % (35.0-46.0); HEMOGLOBIN 12.1 GM/DL (11.6-15.3); LYMPH % 13.1 % (9.0-44.0); LYMPHOCYTE # 1.1 TH/MM3 (1.0-4.8); MEAN CELL VOLUME 88.3 FL (80.0-100.0); MEAN CORPUSCULAR HEMOGLOBIN 29.9 PG (27.0-34.0); MEAN CORPUSCULAR HGB CONC 33.8 % (32.0-36.0); MEAN PLATELET VOLUME 7.2 FL (7.0-11.0); MONO % 7.7 % (0.0-8.0); MONOCYTE # 0.7 TH/MM3 (0-0.9); PLATELET COUNT 150 TH/MM3 (150-450); RED BLOOD COUNT 4.04 MIL/MM3 (4.00-5.30); RED CELL DISTRIBUTION WIDTH 12.2 % (11.6-17.2); WHITE BLOOD COUNT 8.5 TH/MM3 (4.0-11.0)
[2017-12-02 08:33] LABS: CALCIUM 8.3 MG/DL (8.5-10.1)
[2017-12-02 08:34] LABS: BICARBONATE 24.1 MEQ/L (21.0-32.0)
[2017-12-02 08:37] LABS: CREATININE 0.47 MG/DL (0.50-1.00)
[2017-12-02] MEDS: SODIUM CHLORIDE 0.9% FLUSH 10 ML FLUSH IV FLUSH SCH ×2 (08:38→20:10)
[2017-12-02 09:29] LABS: MONOSCREEN NEG (NEG)
[2017-12-02] MEDS ORDERED: Vancomycin Consult Pharmacy 1 EA OTHER SCH (09:30)
[2017-12-02] MEDS: VANCOMYCIN INJ 1,000 MG in SODIUM CHLOR 0.9% 250 ML INJ 250 ML IV SCH ×2 (11:03→17:57)
[2017-12-02] MEDS: cefTRIAXone INJ 1,000 MG in SODIUM CHLORIDE 0.9% INJ 100 ML IV SCH (12:39)
--- NOTE | 2017-12-02 13:09 | HHI.PR ---
Subjective Remarks patient now presents with 4/4 blood cultures which are positive for gram- positive cocci. Patient's been started on vancomycin and Rocephin. MAXIMUM TEMPERATURE 102. Objective Vitals Vital Signs Date Time Temp Pulse Resp B/P (MAP) Pulse Ox O2 Delivery O2 Flow Rate FiO2 12/02/17 08:00 97.9 76 14 118/80 (93) 99 12/02/17 04:00 96.4 80 16 108/68 (81) 100 12/02/17 00:00 98.1 83 16 109/68 (82) 99 12/01/17 20:00 92 12/01/17 20:00 100.3 93 20 109/68 (82) 99 12/01/17 16:00 101.8 81 16 113/65 (81) 99 12/01/17 14:15 102.5 95 16 127/75 (92) 98 12/01/17 14:10 12/01/17 14:05 103.1 110 16 114/72 (86) 99 Room Air I/O 12/01/17 12/01/17 12/01/17 12/02/17 12/02/17 12/02/17 07:00 15:00 23:00 07:00 15:00 23:00 Intake Total 2250 ml 2245 ml 1915 ml 458 ml Output Total 4000 ml 1400 ml Balance 2250 ml -1755 ml 515 ml 458 ml Intake Oral 30 ml 480 ml 458 ml IV Total 2250 ml 2215 ml 1435 ml Output Urine Total 4000 ml 1400 ml Bladder Scan Volume Amount 999 ml 350 ml 999 ml 200 ml # Bowel Movements 0 Result Diagram: 12/02/17 0807 12/02/17 0807 Objective Remarks GENERAL: This is a well-nourished, well-developed patient, in no apparent distress. CARDIOVASCULAR: Regular rate and rhythm without murmurs, gallops, or rubs. RESPIRATORY: Clear to auscultation. Breath sounds equal bilaterally. No wheezes , rales, or rhonchi. GASTROINTESTINAL: Abdomen soft, non-tender, nondistended. Normal active bowel sounds MUSCULOSKELETAL: Extremities without clubbing, cyanosis, or edema. NEURO: Alert & Oriented x4 to person, place, time, situation. Moves all ext x4 A/P Problem List: (1) IVDU (intravenous drug user) ICD Code: F19.90 - Other psychoactive substance use, unspecified, uncomplicated Status: Acute Plan: No active skin lesions or abscesses noted Continue pain management as indicated (2) Bacteremia ICD Code: R78.81 - Bacteremia Plan: High-grade bacteremia Continue vancomycin/Rocephin Echo cardiogram pending to rule out endocarditis in this high-risk patient Dulce Bennett MD Dec 02, 2017 13:09
[2017-12-02] MEDS ORDERED: IBUPROFEN 600 MG TAB PO PRN (13:15)
--- NOTE | 2017-12-02 14:11 | RADRPT ---
EXAM DATE/TIME: 12/02/2017 12:53 [facility] COMPARISON: SHOULDER RIGHT COMPLETE (>2VWS), December 01, 2017, 7:58. INDICATIONS : Abscess. Pain in bilateral shoulders. CONTRAST: 11.5 cc Omniscan (gadodiamide) IV MEDICAL HISTORY : IV drug abuse. SURGICAL HISTORY : Right shoulder fracture repair. ENCOUNTER: Initial ACUITY: 2 day PAIN SCORE: 5/10 LOCATION: Right Shoulder. TECHNIQUE: Multiplanar, multisequence MRI examination was performed without contrast. FINDINGS: Side plate and screws traverse the distal clavicle creating magnetic susceptibility artifact. No definite abscess formation or fluid collection is identified. There is no joint effusion. The rotato r cuff is difficult to evaluate. The glenoid appears intact. CONCLUSION: Post surgical changes otherwise unremarkable without evidence of abscess. Fern Freire MD on December 02, 2017 at 14:06 Board Certified Radiologist. This report was verified electronically.
--- NOTE | 2017-12-02 17:35 | MB ---
cc: JAMILA SNOWDEN MD DATE OF CONSULTATION 12/02/[address] Bennett REASON FOR CONSULTATION Bacteremia/fever. IVDU. HISTORY OF PRESENT ILLNESS This is a 32-year-old white female who uses IV drugs. The patient presented to the emergency department yesterday with complaints of fever, headache, generalized malaise, bilateral shoulder pain and nausea. The patient's symptoms were ongoing for three days. She reports to me that she last used IV drugs three days ago injected into her neck. In the emergency department, her temperature was 102.5. Blood cultures were taken and all four bottles have gram-positive cocci with one bottle identified as staph aureus. The patient states that she still has severe aches in her shoulders. She denies chest pain. Various radiographic studies have been obtained including MRI of the lumbar and thoracic spine which are negative for abscess. MRI of the cervical spine was also negative for abscess. A shoulder MRI was performed and it shows a side plate and screws traversing the distal clavicle at the right and no definite abscess formation or fluid collection identified. A 2-D echo has been ordered. That result is not yet available. The patient's white blood cell count is normal. She is currently on intravenous antibiotics. The temperature during most of yesterday was elevated. PAST MEDICAL HISTORY Unremarkable except for shoulder repair with plates and screws. ALLERGIES NO KNOWN DRUG ALLERGIES. MEDICATIONS 1. Ceftriaxone. 2. Vancomycin. 3. Lovenox. 4. [place] 7.5. 5. Ibuprofen p.r.n. SOCIAL HISTORY No tobacco. Positive alcohol. Positive illicit drug use. The patient states she had Dilaudid injected into her neck three days ago. FAMILY HISTORY Noncontributory. REVIEW OF SYSTEMS Pertinent as mentioned above in history of present illness. Otherwise negative. PHYSICAL EXAMINATION GENERAL: This is a well-developed female who is in no acute distress. She is awake and alert. VITAL SIGNS: Temperature 97.7, BP 121/74, respirations 16, heart rate 82. HEENT: Head atraumatic. Extraocular movements grossly intact. No icterus. No conjunctival erythema. Oropharynx moist mucosa without lesions. NECK: Supple without adenopathy. LUNGS: Clear breath sounds bilateral. HEART: Slight systolic murmur at the left sternal border. ABDOMEN: Bowel sounds present, soft, no tenderness appreciated. RECTAL: Not performed. EXTREMITIES: The right shoulder has erythema at the anterior aspect along the clavicle region. This extends from the shoulder anteriorly across the right clavicle. There is also tenderness on palpation at the left clavicle. SKIN: No diffuse rash. NEUROLOGIC: Weakness of both upper extremities. The patient has difficulty lifting her left arm off the bed because of pain in her left shoulder. PSYCHIATRIC: The patient is calm and cooperative. LABORATORY DATA WBC 8.5, platelet 150, hemoglobin 12.1, ESR 45, creatinine 0.47, estimated GFR 153, AST 47, ALT 33. Urinalysis unremarkable. IMAGING STUDIES Chest x-ray shows minimal bilateral perihilar infiltrates consistent with viral pneumonitis or minimal pulmonary vascular congestion. IMPRESSION 1. Bacteremia in a patient who presented with fever. The patient is an IV drug user. Positive staph aureus in the blood cultures which is most certainly associated with IV drug use. 2. Bilateral shoulder pain. Possible septic arthritis of the shoulder. RECOMMENDATIONS 1. Continue vancomycin 2. Continue ceftriaxone. 3. Monitor the blood cultures for sensitivity of the staph aureus 4. Follow the 2-D echocardiogram 5. Obtain additional blood cultures in the next two days Thank you for this consultation. The patient's progress will be monitored. Further recommendations depending on the response of the antibiotic and whether or not there is endocarditis on the 2-D echocardiogram. Thank you for this consultation. Jamila Snowden MD FD/ /4:06 PM /4:56 PM [facility]
[2017-12-02] MEDS: ONDANSETRON HCL 4 MG/2 ML VIAL IVP PRN (17:56)
[2017-12-02] MEDS: ENOXAPARIN SODIUM 40 MG/0.4 ML SYRINGE SQ SCH (17:57)
[2017-12-03] VITALS (8 sets, daily range): BP systolic 92–134; BP diastolic 71–92; PULSE 75–91; RESP 16–18; TEMP 97.8–99.5; O2SAT 98–99
[2017-12-03] MEDS: ONDANSETRON HCL 4 MG/2 ML VIAL IVP PRN (00:06)
[2017-12-03] MEDS: VANCOMYCIN INJ 1,000 MG in SODIUM CHLOR 0.9% 250 ML INJ 250 ML IV SCH ×2 (01:10→10:10)
[2017-12-03] MEDS: ACETAMINOPHEN/HYDROcodone 325 MG/7.5 MG TAB PO PRN ×6 (01:11→23:20)
[2017-12-03] MEDS: SODIUM CHLOR 0.9% 1000 ML INJ 1,000 ML IV SCH ×2 (01:13→08:24)
[2017-12-03] MEDS: SODIUM CHLORIDE 0.9% FLUSH 10 ML FLUSH IV FLUSH SCH ×2 (08:24→20:58)
[2017-12-03] MEDS ORDERED: PHARMACY ORDERED LAB ONE ×2 (09:45→15:15)
[2017-12-03 10:06] LABS: CREATININE 0.52 MG/DL (0.50-1.00)
--- NOTE | 2017-12-03 10:49 | ECHRPT ---
Indication: CONCLUSIONS Normal left ventricular size and wall thickness. The left ventricular systolic function is normal wi th an estimated ejection fraction in the range of 60-65%. Left ventricular diastolic function parameters a re normal. BP: / HR: Rhythm: Sinus MEASUREMENTS (Male / Female) Normal Values Technical Quality:Excellent 2D ECHO LV Diastolic Diameter PLAX 5.7 cm 4.2 - 5.9 / 3.9 - 5.3 cm LV Systolic Diameter PLAX 3.5 cm IVS Diastolic Thickness 1.0 cm 0.6 - 1.0 / 0.6 - 0.9 cm LVPW Diastolic Thickness 1.0 cm 0.6 - 1.0 / 0.6 - 0.9 cm LV Relative Wall Thickness 0.3 RV Internal Dim ED PLAX 2.3 cm LVOT Diameter 2.2 cm LA Systolic Diameter LX 2.9 cm 3.0 - 4.0 / 2.7 - 3.8 cm M-MODE Aortic Root Diameter MM 2.8 cm AV Cusp Separation MM 2.1 cm DOPPLER AV Peak Velocity 115.0 cm/s AV Peak Gradient 5.3 mmHg LVOT Peak Velocity 88.4 cm/s LVOT Peak Gradient 3.1 mmHg AV Area Cont Eq pk 2.9 cm MV Area PHT 3.2 cm Mitral E Point Velocity 83.9 cm/s Mitral A Point Velocity 62.2 cm/s Mitral E to A Ratio 1.3 LV E' Lateral Velocity 10.0 cm/s Mitral E to LV E' Lateral Ratio 8.4 LV E' Septal Velocity 7.6 cm/s Mitral E to LV E' Septal Ratio 11.0 PV Peak Velocity 99.1 cm/s PV Peak Gradient 3.9 mmHg FINDINGS LEFT VENTRICLE Normal left ventricular size and wall thickness. The left ventricular systolic function is normal wi th an estimated ejection fraction in the range of 60-65%. Left ventricular diastolic function parameters a re normal. RIGHT VENTRICLE Normal right ventricular size and systolic function. LEFT ATRIUM The left atrial size is normal. RIGHT ATRIUM The right atrial size is normal. ATRIAL SEPTUM Normal atrial septal thickness without atrial level shunting by limited color doppler interrogation. AORTA The aortic root and proximal ascending aorta are normal in size on limited imaging. MITRAL VALVE Structurally normal mitral valve. No mitral valve stenosis or regurgitation. AORTIC VALVE Trileaflet aortic valve. No aortic valve stenosis or regurgitation. TRICUSPID VALVE Structurally normal tricuspid valve. No tricuspid valve stenosis or regurgitation. PULMONARY VALVE The pulmonary valve is not well visualized. VESSELS The inferior vena cava is normal in size. PERICARDIUM No pericardial effusion. Alli Cooley MD (Electronically Signed) Final Date:03 December 2017 10:49
[2017-12-03] MEDS: cefTRIAXone INJ 1,000 MG in SODIUM CHLORIDE 0.9% INJ 100 ML IV SCH (11:52)
--- NOTE | 2017-12-03 12:05 | HHI.PR ---
Subjective Remarks Patient seen and evaluated in follow-up for bacteremia, 4 out of 4 blood cultures positive likely MSSA. Patient feels better. She is complaining of constipation. She is tolerating vancomycin and Rocephin without difficulty Echocardiogram is not showing any vegetations Fever resolved Objective Vitals Vital Signs Date Time Temp Pulse Resp B/P (MAP) Pulse Ox O2 Delivery O2 Flow Rate FiO2 12/03/17 08:01 79 12/03/17 08:00 99.0 81 18 126/78 (94) 98 12/03/17 04:00 97.8 82 18 116/73 (87) 98 12/03/17 00:00 98.2 84 16 120/71 (87) 98 12/02/17 20:00 76 12/02/17 20:00 96.5 63 18 140/5 (50) 95 12/02/17 16:00 98.7 89 12 136/73 (94) 99 I/O 12/02/17 12/02/17 12/02/17 12/03/17 12/03/17 12/03/17 07:00 15:00 23:00 07:00 15:00 23:00 Intake Total 1915 ml 1128 ml 704 ml 1990 ml 920 ml Output Total 1400 ml 900 ml 1300 ml 1100 ml 1100 ml Balance 515 ml 228 ml -596 ml 890 ml -180 ml Intake Oral 480 ml 458 ml 354 ml 740 ml IV Total 1435 ml 670 ml 350 ml 1250 ml 920 ml Output Urine Total 1400 ml 900 ml 1300 ml 1100 ml 1100 ml # Bowel Movements 0 0 Result Diagram: 12/02/17 0807 12/03/17 0930 Objective Remarks GENERAL: This is a well-nourished, well-developed patient, in no apparent distress. CARDIOVASCULAR: Regular rate and rhythm without murmurs, gallops, or rubs. RESPIRATORY: Clear to auscultation. Breath sounds equal bilaterally. No wheezes , rales, or rhonchi. GASTROINTESTINAL: Abdomen soft, non-tender, nondistended. Normal active bowel sounds MUSCULOSKELETAL: Extremities without clubbing, cyanosis, or edema. NEURO: Alert & Oriented x4 to person, place, time, situation. Moves all ext x4 A/P Problem List: (1) IVDU (intravenous drug user) ICD Code: F19.90 - Other psychoactive substance use, unspecified, uncomplicated Status: Acute Plan: No active skin lesions or abscesses noted Continue pain management as indicated Avoid escalation of narcotics (2) Bacteremia ICD Code: R78.81 - Bacteremia Plan: High-grade bacteremia Continue vancomycin/Rocephin Repeat blood cultures pending today to assess for clearance ID following Discharge Planning Pending repeat cultures Dulce Bennett MD Dec 03, 2017 12:05
[2017-12-03] MEDS: guaiFENesin/DEXTROMETHORPHAN 200 MG/20 MG/10 ML CUP PO PRN (13:53)
--- NOTE | 2017-12-03 15:32 | HHI.IDPN ---
Note Infectious Disease Note Patient says that she feels a little but still feels achy all over and complains of back pain in the lower back and shoulders. Presented to the emergency department yesterday with complaints of fever, headache, generalized malaise, bilateral shoulder pain and nausea. The patient' s symptoms were ongoing for three days. She reports to me that she last used IV drugs three days ago injected into her neck. In the emergency department, her temperature was 102.5. Blood cultures were taken and all four bottles have staph aureus. PAST MEDICAL HISTORY Unremarkable except for right shoulder repair with plates and screws. ALLERGIES NO KNOWN DRUG ALLERGIES. ANTIBIOTICS 1. Ceftriaxone. 2. Vancomycin. SOCIAL HISTORY No tobacco. Positive alcohol. Positive illicit drug use. The patient states she had Dilaudid injected into her neck three days ago. FAMILY HISTORY Noncontributory. REVIEW OF SYSTEMS Pertinent as mentioned above in history of present illness. Otherwise negative. OBJECTIVE: Vital Signs Date Time Temp Pulse Resp B/P (MAP) Pulse Ox O2 Delivery O2 Flow Rate FiO2 12/03/17 12:00 99.2 80 16 117/80 (92) 99 12/03/17 08:01 79 12/03/17 08:00 99.0 81 18 126/78 (94) 98 12/03/17 04:00 97.8 82 18 116/73 (87) 98 12/03/17 00:00 98.2 84 16 120/71 (87) 98 12/02/17 20:00 76 12/02/17 20:00 96.5 63 18 140/5 (50) 95 12/02/17 16:00 98.7 89 12 136/73 (94) 99 Laboratory Tests Test 12/02/17 08:07 White Blood Count 8.5 TH/MM3 Red Blood Count 4.04 MIL/MM3 Hemoglobin 12.1 GM/DL Hematocrit 35.7 % Mean Corpuscular Volume 88.3 FL Mean Corpuscular Hemoglobin 29.9 PG Mean Corpuscular Hemoglobin Concent 33.8 % Red Cell Distribution Width 12.2 % Platelet Count 150 TH/MM3 Mean Platelet Volume 7.2 FL Neutrophils (%) (Auto) 78.0 % Lymphocytes (%) (Auto) 13.1 % Monocytes (%) (Auto) 7.7 % Eosinophils (%) (Auto) 0.6 % Basophils (%) (Auto) 0.6 % Neutrophils # (Auto) 6.5 TH/MM3 Lymphocytes # (Auto) 1.1 TH/MM3 Monocytes # (Auto) 0.7 TH/MM3 Eosinophils # (Auto) 0.1 TH/MM3 Basophils # (Auto) 0.1 TH/MM3 CBC Comment DIFF FINAL Differential Comment Laboratory Tests Test 12/02/17 08:07 12/03/17 09:30 Blood Urea Nitrogen 8 MG/DL Creatinine 0.47 MG/DL 0.52 MG/DL Random Glucose 103 MG/DL Calcium Level 8.3 MG/DL Sodium Level 137 MEQ/L Potassium Level 3.8 MEQ/L Chloride Level 104 MEQ/L Carbon Dioxide Level 24.1 MEQ/L Anion Gap 9 MEQ/L Estimat Glomerular Filtration Rate 153 ML/MIN 136 ML/MIN Microbiology Date/Time Source Procedure Growth Status 12/03/17 13:00 Blood Peripheral Aerobic Blood Culture Pending Received 12/03/17 13:00 Blood Peripheral Anaerobic Blood Culture Pending Received 12/03/17 12:45 Blood Peripheral Aerobic Blood Culture Pending Received 12/03/17 12:45 Blood Peripheral Anaerobic Blood Culture Pending Received 12/01/17 06:30 Blood Peripheral Aerobic Blood Culture - Preliminary Staphylococcus Aureus Resulted 12/01/17 06:30 Anaerobic Blood Culture - Preliminary Staphylococcus Aureus Resulted 12/01/17 06:30 Blood Peripheral Aerobic Blood Culture - Preliminary Staphylococcus Aureus Resulted 12/01/17 06:30 Anaerobic Blood Culture - Preliminary Staphylococcus Aureus Resulted 12/01/17 06:47 Nasal Washing Influenza Types A,B Antigen (LEE) - Final NEGATIVE FOR FLU A AND B ANTIGEN.... Complete IMAGING: Shoulder MRI 12/02/17 0000 Signed Impressions: Service Date/Time: November 12:53 - CONCLUSION: Post surgical changes otherwise unremarkable without evidence of abscess. Fern Freire MD Chest X-Ray 12/01/17 0634 Signed Impressions: Service Date/Time: Friday, December 01, 2017 07:58 - CONCLUSION: Minimal bilateral perihilar infiltrates consistent with viral pneumonitis or minimal pulmonary vascular congestion. Clinical correlation is recommended. Jacky Guevara MD Thoracic Spine MRI 12/01/17 0000 Signed Impressions: Service Date/Time: Friday, December 01, 2017 09:07 - CONCLUSION: 1. Negative MRI of the thoracic spine Hernan Arroyo MD Shoulder X-Ray 12/01/17 0000 Signed Impressions: Service Date/Time: Friday, December 01, 2017 07:58 - CONCLUSION: No acute disease. Jacky Guevara MD Lumbar Spine MRI 12/01/17 0000 Signed Impressions: Service Date/Time: Friday, December 01, 2017 09:07 - CONCLUSION: 1. Small central protrusions as described above. There is no evidence of abscess. Hernan Arroyo MD Head CT 12/01/17 0000 Signed Impressions: Service Date/Time: Friday, December 01, 2017 08:13 - CONCLUSION: No acute disease. Jacky Guevara MD Cervical Spine MRI 12/01/17 0000 Signed Impressions: Service Date/Time: Friday, December 01, 2017 09:07 - CONCLUSION: Small central protrusion at C5-C6 without stenosis. There is no evidence of abscess. Hernan Arroyo MD PHYSICAL EXAMINATION GENERAL: No acute distress. She is awake and alert. HEENT: Head atraumatic. Extraocular movements grossly intact. No icterus. No conjunctival erythema. Oropharynx moist mucosa without lesions. NECK: Supple without adenopathy. LUNGS: Clear breath sounds. HEART: Slight systolic murmur at the left sternal border. ABDOMEN: Bowel sounds present, soft, no tenderness. EXTREMITIES: The right shoulder has less erythema at the anterior aspect along the right clavicle region. There is also tenderness on palpation at the left clavicle. SKIN: No diffuse rash. NEUROLOGIC: Weakness of both upper extremities. Able to raise left arm better but not above ~ 25 degrees. PSYCHIATRIC: Calm and cooperative. IMPRESSION 1. Staph aureus Bacteremia in a patient who presented with fever. secondary to IV drug use. 2. IVDU. 3. Bilateral shoulder pain. Possible septic arthritis of the shoulder. RECOMMENDATIONS 1. Stop vancomycin 2. Stop ceftriaxone. 3. Begin Ancef IV. 4. Follow the new blood cultures. Further antibiotic plan depending on the new blood cultures. If positive additional blood cultures needs to be obtained. Adonis Snowden MD Dec 03, 2017 15:32
[2017-12-03] MEDS ORDERED: VANCOMYCIN INJ 1,250 MG in SODIUM CHLOR 0.9% 250 ML INJ 250 ML IV SCH (16:00)
[2017-12-03] MEDS: ENOXAPARIN SODIUM 40 MG/0.4 ML SYRINGE SQ SCH (16:56)
[2017-12-03] MEDS: ceFAZolin 2 GM PREMIX 50 ML IV SCH ×2 (16:56→23:20)
[2017-12-03] MEDS: MAGNESIUM HYDROXIDE SUSP 30 ML CUP PO PRN (18:07)
[2017-12-04 01:14] VITALS: BP 127/76; PULSE 83; RESP 16; TEMP 98; O2SAT 97
[2017-12-04] MEDS: ACETAMINOPHEN/HYDROcodone 325 MG/7.5 MG TAB PO PRN ×2 (03:54→08:07)
[2017-12-04 08:00] VITALS: BP 122/73; PULSE 79; RESP 16; TEMP 98.7; O2SAT 96
[2017-12-04] MEDS: ceFAZolin 2 GM PREMIX 50 ML IV SCH ×3 (08:00→23:57)
[2017-12-04] MEDS: SODIUM CHLORIDE 0.9% FLUSH 10 ML FLUSH IV FLUSH SCH ×2 (09:00→20:13)
[2017-12-04 12:00] VITALS: BP 108/68; PULSE 88; RESP 16; TEMP 99.4; O2SAT 97
[2017-12-04] MEDS: KETOROLAC TROMETHAMINE 60 MG/2 ML (IM) VIAL IM PRN ×2 (12:10→20:16)
[2017-12-04] MEDS: MAGNESIUM HYDROXIDE SUSP 30 ML CUP PO PRN ×2 (12:16→23:57)
--- NOTE | 2017-12-04 15:04 | HHI.PR ---
Subjective Remarks Patient seen and examined today for follow-up on bacteremia secondary to IV drug use. Patient lying in bed, resting carefully. Spoke with patient extensively about her condition, plan for treatment and duration. Patient had multiple questions concerning rehabilitation from opiate use. Patient wants to wean herself off of opiates at this time and requested that I start changing her medication. Patient states that she still has not had a bowel movement and is asking for increase bowel prep. Objective Vital Signs Date Time Temp Pulse Resp B/P (MAP) Pulse Ox O2 Delivery O2 Flow Rate FiO2 12/04/17 09:07 18 12/04/17 08:00 98.7 79 16 122/73 (89) 96 12/04/17 04:38 12/04/17 01:14 98.0 83 16 127/76 (93) 97 12/03/17 20:36 98.3 91 18 125/81 (96) 98 12/03/17 16:00 99.5 75 16 134/92 (106) 99 I/O 12/03/17 12/03/17 12/03/17 12/04/17 12/04/17 12/04/17 07:00 15:00 23:00 07:00 15:00 23:00 Intake Total 1990 ml 1340 ml 50 ml 50 ml Output Total 1100 ml 1700 ml 900 ml 1850 ml Balance 890 ml -360 ml -850 ml -1800 ml Intake Oral 740 ml IV Total 1250 ml 1340 ml 50 ml 50 ml Output Urine Total 1100 ml 1700 ml 900 ml 1850 ml # Voids 6 # Bowel Movements 0 Result Diagram: 12/02/17 0807 12/03/17 0930 Objective Remarks GENERAL: Well-developed, well-nourished, in no acute distress. alert and orientated HEENT: Head is normocephalic without any lesions or masses noted. Facial features are symmetric. Eyes: Extraocular muscles are intact. Conjunctivae were clear. NECK: Supple without any masses. Trachea midline no deviation. No JVD, CARDIAC: Regular rhythm, regular rate. S1/S2 are heard. No murmurs gallops or rubs. LUNGS: Clear to auscultation bilaterally. No wheeze, rhonchi or rales. No use of accessory muscles on inspiration or expiration. ABDOMEN: Soft, nontender. Nondistended. Bowel sounds heard in all 4 quadrants. No organomegaly or masses. Negative rebound, negative guarding EXTREMITIES: No edema, pulses are equal bilaterally. No cyanosis or clubbing NEUROLOGY: Mood and affect appear appropriate. Cranial nerves II through XII grossly intact. Moving all extremities, speech is clear A/P Assessment and Plan Bacteremia, high-grade Complicated with patient being IV drug user with Dilaudid Echocardiogram does not indicate any vegetation Blood cultures 03/02 with staph aureus Follow blood cultures negative for 1 day Patient was on vancomycin/Rocephin and now changed to Ancef Infectious disease following the patient Discuss with infectious disease about tentative treatment. He indicated if follow-up blood cultures come back negative, the patient should continue IV antibiotics for total of 10 days from negative blood culture Cannot have midline/PICC line placed until follow-up blood cultures are negative for 3 days IV drug user with opiate addiction patient wishes to be weaned off of narcotics at this time Will decrease to [place] 5 mg every 4 hours, continue to reduce dosage every 2- 3 days Counseled patient on abstaining from opiate use, outpatient rehabilitation Constipation Start Mary-Colace one tablet twice daily Milk of magnesia as needed DVT prevention Lovenox Discharge Planning Discharge planning 3-10 days, depending upon if outpatient IV antibiotics can be arranged in 3 days with PICC/midline or remaining in the hospital for the total antibody course of 10 days Jatinder Elizabeth Dec 04, 2017 15:04
[2017-12-04] MEDS ORDERED: PHARMACY ORDERED LAB ONE (15:45)
[2017-12-04 16:00] VITALS: BP 115/69; PULSE 82; RESP 16; TEMP 99.4; O2SAT 100
[2017-12-04] MEDS: DOCUSATE SODIUM 50 MG/SENNA 8.6 MG TAB PO SCH ×2 (16:30→20:13)
[2017-12-04] MEDS: ENOXAPARIN SODIUM 40 MG/0.4 ML SYRINGE SQ SCH (16:31)
[2017-12-04 19:52] LABS: PARVOVIRUS B19 IGG 8.3; PARVOVIRUS B19 IGM 0.4
[2017-12-04 20:00] VITALS: BP 116/59; PULSE 98; RESP 20; TEMP 101.1; O2SAT 99
[2017-12-04] MEDS ORDERED: ACETAMINOPHEN 325 MG TAB PO PRN (20:00)
[2017-12-04 22:15] VITALS: TEMP 100.4
[2017-12-04] MEDS: ACETAMINOPHEN/HYDROcodone 325 MG/5 MG TAB PO PRN (23:57)
[2017-12-05] VITALS: TEMP 98.7
[2017-12-05] MEDS: ACETAMINOPHEN/HYDROcodone 325 MG/5 MG TAB PO PRN ×4 (04:23→19:59)
[2017-12-05 07:04] LABS: CREATININE 0.51 MG/DL (0.50-1.00)
[2017-12-05 08:00] VITALS: BP 121/63; PULSE 91; RESP 16; TEMP 98.6; O2SAT 95
--- NOTE | 2017-12-05 08:29 | HHI.PR ---
Subjective Remarks Patient seen and examined today for follow-up on bacteremia secondary to IV drug use. Patient walking the halls, Had fever last night. still no BM, OK with enema Objective Vital Signs Date Time Temp Pulse Resp B/P (MAP) Pulse Ox O2 Delivery O2 Flow Rate FiO2 12/05/17 08:00 98.6 91 16 121/63 (82) 95 12/05/17 00:00 98.7 12/04/17 22:15 100.4 12/04/17 20:00 101.1 98 20 116/59 (78) 99 12/04/17 16:00 99.4 82 16 115/69 (84) 100 12/04/17 13:10 18 12/04/17 12:00 99.4 88 16 108/68 (81) 97 12/04/17 09:07 18 I/O 12/04/17 12/04/17 12/04/17 12/05/17 12/05/17 12/05/17 07:00 15:00 23:00 07:00 15:00 23:00 Intake Total 50 ml 900 ml 50 ml 50 ml Output Total 1850 ml 1000 ml Balance -1800 ml 900 ml 50 ml -950 ml Intake Oral 850 ml IV Total 50 ml 50 ml 50 ml 50 ml Output Urine Total 1850 ml 1000 ml # Voids 6 1 3 # Bowel Movements 1 0 0 Result Diagram: 12/02/17 0807 12/05/17 0555 Objective Remarks GENERAL: Well-developed, well-nourished, in no acute distress. alert and orientated HEENT: Head is normocephalic without any lesions or masses noted. Facial features are symmetric. Eyes: Extraocular muscles are intact. Conjunctivae were clear. NECK: Supple without any masses. Trachea midline no deviation. No JVD, CARDIAC: Regular rhythm, regular rate. S1/S2 are heard. No murmurs gallops or rubs. LUNGS: Clear to auscultation bilaterally. No wheeze, rhonchi or rales. No use of accessory muscles on inspiration or expiration. ABDOMEN: Soft, nontender. Nondistended. Bowel sounds heard in all 4 quadrants. No organomegaly or masses. Negative rebound, negative guarding EXTREMITIES: No edema, pulses are equal bilaterally. No cyanosis or clubbing NEUROLOGY: Mood and affect appear appropriate. Cranial nerves II through XII grossly intact. Moving all extremities, speech is clear A/P Assessment and Plan Bacteremia, high-grade Complicated with patient being IV drug user with Dilaudid Echocardiogram does not indicate any vegetation Blood cultures 03/02 with staph aureus Follow blood cultures negative for 2 day Patient was on vancomycin/Rocephin and now changed to Ancef Infectious disease following the patient Discuss with infectious disease about tentative treatment. He indicated if follow-up blood cultures come back negative, the patient should continue IV antibiotics for total of 10 days from negative blood culture Cannot have midline/PICC line placed until follow-up blood cultures are negative for 3 days IV drug user with opiate addiction patient wishes to be weaned off of narcotics at this time [place] 5 mg every 4 hours, continue to reduce dosage every 2-3 days Counseled patient on abstaining from opiate use, outpatient rehabilitation Constipation Mary-Colace one tablet twice daily Milk of magnesia as needed Fleet enema x1 DVT prevention Lovenox Discharge Planning Discharge planning 2-9 days, depending upon if outpatient IV antibiotics can be arranged in 2 days with PICC/midline or remaining in the hospital for the total antibody course of 10 days Jatinder Elizabeth Dec 05, 2017 08:29
[2017-12-05] MEDS: DOCUSATE SODIUM 50 MG/SENNA 8.6 MG TAB PO SCH ×2 (08:40→19:58)
[2017-12-05] MEDS: ceFAZolin 2 GM PREMIX 50 ML IV SCH ×2 (08:40→16:22)
[2017-12-05] MEDS: SODIUM CHLORIDE 0.9% FLUSH 10 ML FLUSH IV FLUSH SCH ×2 (08:40→19:58)
[2017-12-05] MEDS ORDERED: SOD PHOSPHATE/SOD BIPHOSPHATE (ADULT) ENEMA 133ML RECTAL ONE (09:00)
[2017-12-05 12:00] VITALS: BP 114/70; PULSE 79; RESP 18; TEMP 98.6; O2SAT 100
[2017-12-05] MEDS: ENOXAPARIN SODIUM 40 MG/0.4 ML SYRINGE SQ SCH (16:26)
[2017-12-05] MEDS: KETOROLAC TROMETHAMINE 60 MG/2 ML (IM) VIAL IM PRN (17:14)
[2017-12-05 20:00] VITALS: BP_SYST 102; BP_SYST 119; BP_DIAS 61; BP_DIAS 71; PULSE 74; PULSE 81; RESP 18; RESP 20; TEMP 98.7; O2SAT 100; O2SAT 98
[2017-12-06] VITALS: BP 119/71; PULSE 81; RESP 18; TEMP 98.7; O2SAT 98
[2017-12-06] MEDS: ceFAZolin 2 GM PREMIX 50 ML IV SCH ×3 (00:36→17:10)
[2017-12-06] MEDS: KETOROLAC TROMETHAMINE 60 MG/2 ML (IM) VIAL IM PRN ×2 (00:37→09:24)
[2017-12-06] MEDS: ACETAMINOPHEN/HYDROcodone 325 MG/5 MG TAB PO PRN ×3 (06:51→20:09)
[2017-12-06 08:00] VITALS: BP 107/62; PULSE 83; RESP 15; TEMP 98.6; O2SAT 99
[2017-12-06] MEDS: DOCUSATE SODIUM 50 MG/SENNA 8.6 MG TAB PO SCH ×2 (09:00→20:09)
[2017-12-06] MEDS: SODIUM CHLORIDE 0.9% FLUSH 10 ML FLUSH IV FLUSH SCH ×2 (09:09→20:10)
[2017-12-06] MEDS: MAGNESIUM HYDROXIDE SUSP 30 ML CUP PO PRN ×2 (09:24→22:03)
--- NOTE | 2017-12-06 10:53 | HHI.PR ---
Subjective Remarks Patient seen and examined today for follow-up on bacteremia secondary to IV drug use. Patient resting comfortably. Denies any new complaints. Remains afebrile Objective Vital Signs Date Time Temp Pulse Resp B/P (MAP) Pulse Ox O2 Delivery O2 Flow Rate FiO2 12/06/17 09:18 18 12/06/17 08:00 98.6 83 15 107/62 (77) 99 12/06/17 00:00 98.7 81 18 119/71 (87) 98 12/05/17 20:00 98.7 74 20 102/61 (75) 100 12/05/17 18:23 20 12/05/17 12:00 98.6 79 18 114/70 (85) 100 I/O 12/05/17 12/05/17 12/05/17 12/06/17 12/06/17 12/06/17 07:00 15:00 23:00 07:00 15:00 23:00 Intake Total 50 ml 950 ml 350 ml 1010 ml Output Total 1000 ml Balance -950 ml 950 ml 350 ml 1010 ml Intake Oral 950 ml 350 ml 960 ml IV Total 50 ml 50 ml Output Urine Total 1000 ml # Voids 3 6 5 10 # Bowel Movements 0 2 2 0 Result Diagram: 12/02/17 0807 12/05/17 0555 Objective Remarks GENERAL: Well-developed, well-nourished, in no acute distress. alert and orientated HEENT: Head is normocephalic without any lesions or masses noted. Facial features are symmetric. Eyes: Extraocular muscles are intact. Conjunctivae were clear. NECK: Supple without any masses. Trachea midline no deviation. No JVD, CARDIAC: Regular rhythm, regular rate. S1/S2 are heard. No murmurs gallops or rubs. LUNGS: Clear to auscultation bilaterally. No wheeze, rhonchi or rales. No use of accessory muscles on inspiration or expiration. ABDOMEN: Soft, nontender. Nondistended. Bowel sounds heard in all 4 quadrants. No organomegaly or masses. Negative rebound, negative guarding EXTREMITIES: No edema, pulses are equal bilaterally. No cyanosis or clubbing NEUROLOGY: Mood and affect appear appropriate. Cranial nerves II through XII grossly intact. Moving all extremities, speech is clear A/P Assessment and Plan Bacteremia, high-grade Complicated with patient being IV drug user with Dilaudid Echocardiogram does not indicate any vegetation Blood cultures 03/02 with staph aureus Follow blood cultures negative for 2 day Patient was on vancomycin/Rocephin and now changed to Ancef Infectious disease following the patient Discuss with infectious disease. if follow-up blood cultures come back negative, the patient should continue IV antibiotics for total of 10 days from negative blood culture Cannot have midline/PICC line placed until follow-up blood cultures are negative for 3 days and afebrile for 48 hrs IV drug user with opiate addiction patient wishes to be weaned off of narcotics at this time Changed to [place] 5 mg every 6 hours, continue to reduce dosage every 2-3 days Start Ibuprofen 600 mg Q 8 Hr for pain control Counseled patient on abstaining from opiate use, outpatient rehabilitation Constipation Mary-Colace one tablet twice daily Milk of magnesia as needed Fleet enema x1 DVT prevention Lovenox Discharge Planning Discharge planning 1-8 days, depending upon if outpatient IV antibiotics can be arranged with PICC/midline or remaining in the hospital for the total antibiotic course of 10 days Jatinder Elizabeth Dec 06, 2017 10:53
[2017-12-06 12:00] VITALS: BP 122/77; PULSE 71; RESP 18; TEMP 98.2; O2SAT 100
[2017-12-06 16:00] VITALS: BP 106/59; PULSE 73; RESP 17; TEMP 97.3; O2SAT 100
[2017-12-06] MEDS: ENOXAPARIN SODIUM 40 MG/0.4 ML SYRINGE SQ SCH (17:10)
--- NOTE | 2017-12-06 18:28 | HHI.IDPN ---
Note Infectious Disease Note Patient says that she feels better but has pain in the left shoulder. Temp catrachito to 101 on 12/04 evening. Denies chills. Blood culture repeat - negative day 3. Presented to the emergency department with complaints of fever, headache, generalized malaise, bilateral shoulder pain and nausea. The patient' s symptoms were ongoing for three days. She reports to me that she last used IV drugs three days ago injected into her neck. In the emergency department, her temperature was 102.5. Blood cultures were taken and all four bottles have staph aureus. PAST MEDICAL HISTORY Unremarkable except for right shoulder repair with plates and screws. ALLERGIES NO KNOWN DRUG ALLERGIES. ANTIBIOTICS 1. Ceftriaxone. SOCIAL HISTORY No tobacco. Positive alcohol. Positive illicit drug use. The patient states she had Dilaudid injected into her neck three days ago. FAMILY HISTORY Noncontributory. REVIEW OF SYSTEMS Pertinent as mentioned above in history of present illness. Otherwise negative. OBJECTIVE: Vital Signs Date Time Temp Pulse Resp B/P (MAP) Pulse Ox O2 Delivery O2 Flow Rate FiO2 12/06/17 16:00 97.3 73 17 106/59 (75) 100 12/06/17 15:08 18 12/06/17 12:00 98.2 71 18 122/77 (92) 100 12/06/17 09:18 18 12/06/17 08:00 98.6 83 15 107/62 (77) 99 12/06/17 00:00 98.7 81 18 119/71 (87) 98 12/05/17 20:00 98.7 74 20 102/61 (75) 100 Laboratory Tests Test 12/05/17 05:55 Creatinine 0.51 MG/DL Estimat Glomerular Filtration Rate 139 ML/MIN Microbiology Date/Time Source Procedure Growth Status 12/03/17 13:00 Blood Peripheral Aerobic Blood Culture Pending Received 12/03/17 13:00 Blood Peripheral Anaerobic Blood Culture Pending Received 12/03/17 12:45 Blood Peripheral Aerobic Blood Culture Pending Received 12/03/17 12:45 Blood Peripheral Anaerobic Blood Culture Pending Received 12/01/17 06:30 Blood Peripheral Aerobic Blood Culture - Preliminary Staphylococcus Aureus Resulted 12/01/17 06:30 Anaerobic Blood Culture - Preliminary Staphylococcus Aureus Resulted 12/01/17 06:30 Blood Peripheral Aerobic Blood Culture - Preliminary Staphylococcus Aureus Resulted 12/01/17 06:30 Anaerobic Blood Culture - Preliminary Staphylococcus Aureus Resulted 12/01/17 06:47 Nasal Washing Influenza Types A,B Antigen (LEE) - Final NEGATIVE FOR FLU A AND B ANTIGEN.... Complete IMAGING: Shoulder MRI 12/02/17 0000 Signed Impressions: Service Date/Time: November 12:53 - CONCLUSION: Post surgical changes otherwise unremarkable without evidence of abscess. Fern Freire MD Chest X-Ray 12/01/17 0634 Signed Impressions: Service Date/Time: Friday, December 01, 2017 07:58 - CONCLUSION: Minimal bilateral perihilar infiltrates consistent with viral pneumonitis or minimal pulmonary vascular congestion. Clinical correlation is recommended. Jacky Guevara MD Thoracic Spine MRI 12/01/17 0000 Signed Impressions: Service Date/Time: Friday, December 01, 2017 09:07 - CONCLUSION: 1. Negative MRI of the thoracic spine Hernan Arroyo MD Shoulder X-Ray 12/01/17 0000 Signed Impressions: Service Date/Time: Friday, December 01, 2017 07:58 - CONCLUSION: No acute disease. Jacky Guevara MD Lumbar Spine MRI 12/01/17 0000 Signed Impressions: Service Date/Time: Friday, December 01, 2017 09:07 - CONCLUSION: 1. Small central protrusions as described above. There is no evidence of abscess. Hernan Arroyo MD Head CT 12/01/17 0000 Signed Impressions: Service Date/Time: Friday, December 01, 2017 08:13 - CONCLUSION: No acute disease. Jacky Guevara MD Cervical Spine MRI 12/01/17 0000 Signed Impressions: Service Date/Time: Friday, December 01, 2017 09:07 - CONCLUSION: Small central protrusion at C5-C6 without stenosis. There is no evidence of abscess. Hernan Arroyo MD PHYSICAL EXAMINATION GENERAL: No acute distress. She is awake and alert. HEENT: Head atraumatic. Extraocular movements grossly intact. No icterus. No conjunctival erythema. Oropharynx moist mucosa without lesions. NECK: Supple without adenopathy. LUNGS: Clear breath sounds. HEART: Slight systolic murmur at the left sternal border. ABDOMEN: Bowel sounds present, soft, no tenderness. EXTREMITIES: The right shoulder has less erythema at the anterior aspect along the right clavicle region. There is mild tenderness on palpation at the left sholuder in one spot anteriorly. SKIN: No diffuse rash. NEUROLOGIC: Weakness of both upper extremities. Able to raise left arm better PSYCHIATRIC: Calm and cooperative. IMPRESSION 1. Staph aureus Bacteremia in a patient who presented with fever. secondary to IV drug use. 2. IVDU. 3. Bilateral shoulder pain. Possible septic arthritis of the shoulder. RECOMMENDATIONS Continue Ancef IV. Consider discharge on IV Ceftriaxone if no new fever. Adonis Snowden MD Dec 06, 2017 18:28
[2017-12-06] MEDS: IBUPROFEN 600 MG TAB PO SCH ×2 (19:17→22:02)
[2017-12-06 20:00] VITALS: BP 101/50; PULSE 92; RESP 20; TEMP 100.7; O2SAT 98
[2017-12-07] VITALS: BP 105/55; PULSE 79; RESP 20; TEMP 98.6; O2SAT 100
[2017-12-07] MEDS: ceFAZolin 2 GM PREMIX 50 ML IV SCH ×3 (00:07→18:44)
[2017-12-07] MEDS: SODIUM CHLORIDE 0.9% FLUSH 10 ML FLUSH IV FLUSH PRN ×2 (00:08→00:16)
[2017-12-07] MEDS: guaiFENesin/DEXTROMETHORPHAN 200 MG/20 MG/10 ML CUP PO PRN ×2 (00:15→21:46)
[2017-12-07] MEDS: ONDANSETRON HCL 4 MG/2 ML VIAL IVP PRN (00:15)
[2017-12-07] MEDS: ACETAMINOPHEN/HYDROcodone 325 MG/5 MG TAB PO PRN ×3 (02:04→19:44)
[2017-12-07] MEDS ORDERED: TEMAZEPAM 15 MG CAP PO ONE (02:30)
[2017-12-07 05:56] LABS: CREATININE 0.55 MG/DL (0.50-1.00)
[2017-12-07] MEDS: IBUPROFEN 600 MG TAB PO SCH ×3 (06:45→21:47)
[2017-12-07 08:00] VITALS: BP 111/68; PULSE 76; RESP 15; TEMP 98.8; O2SAT 100
[2017-12-07] MEDS: SODIUM CHLORIDE 0.9% FLUSH 10 ML FLUSH IV FLUSH SCH ×2 (09:00→21:46)
[2017-12-07] MEDS: DOCUSATE SODIUM 50 MG/SENNA 8.6 MG TAB PO SCH ×2 (09:00→21:46)
--- NOTE | 2017-12-07 09:26 | HHI.PR ---
Subjective Remarks Follow-up bacteremia secondary to IV drug use. Patient seen and examined, sitting up in chair comfortably eating breakfast. Denies any acute events overnight, states she did not sleep well. Patient had a TMAX of 100.7 overnight. Denies any pain. Denies any abdominal pain, nausea, vomiting, diarrhea. Objective Vitals Vital Signs Date Time Temp Pulse Resp B/P (MAP) Pulse Ox O2 Delivery O2 Flow Rate FiO2 12/07/17 07:45 18 12/07/17 00:00 98.6 79 20 105/55 (72) 100 12/06/17 20:00 100.7 92 20 101/50 (67) 98 12/06/17 16:00 97.3 73 17 106/59 (75) 100 12/06/17 15:08 18 12/06/17 12:00 98.2 71 18 122/77 (92) 100 I/O 12/06/17 12/06/17 12/06/17 12/07/17 12/07/17 12/07/17 07:00 15:00 23:00 07:00 15:00 23:00 Intake Total 1010 ml 50 ml 100 ml 770 ml Balance 1010 ml 50 ml 100 ml 770 ml Intake Oral 960 ml 720 ml IV Total 50 ml 50 ml 100 ml 50 ml # Voids 10 8 # Bowel Movements 0 Result Diagram: 12/07/17 0455 Imaging Last Impressions Shoulder MRI 12/02/17 0000 Signed Impressions: Service Date/Time: November 12:53 - CONCLUSION: Post surgical changes otherwise unremarkable without evidence of abscess. Fern Freire MD Chest X-Ray 12/01/17 0634 Signed Impressions: Service Date/Time: Friday, December 01, 2017 07:58 - CONCLUSION: Minimal bilateral perihilar infiltrates consistent with viral pneumonitis or minimal pulmonary vascular congestion. Clinical correlation is recommended. Jacky Guevara MD Thoracic Spine MRI 12/01/17 0000 Signed Impressions: Service Date/Time: Friday, December 01, 2017 09:07 - CONCLUSION: 1. Negative MRI of the thoracic spine Hernan Arroyo MD Shoulder X-Ray 12/01/17 0000 Signed Impressions: Service Date/Time: Friday, December 01, 2017 07:58 - CONCLUSION: No acute disease. Jacky Guevara MD Lumbar Spine MRI 12/01/17 0000 Signed Impressions: Service Date/Time: Friday, December 01, 2017 09:07 - CONCLUSION: 1. Small central protrusions as described above. There is no evidence of abscess. Hernan Arroyo MD Head CT 12/01/17 0000 Signed Impressions: Service Date/Time: Friday, December 01, 2017 08:13 - CONCLUSION: No acute disease. Jacky Guevara MD Cervical Spine MRI 12/01/17 0000 Signed Impressions: Service Date/Time: Friday, December 01, 2017 09:07 - CONCLUSION: Small central protrusion at C5-C6 without stenosis. There is no evidence of abscess. Hernan Arroyo MD Objective Remarks GENERAL: Well-developed, well-nourished, in no acute distress. alert and orientated HEENT: Head is normocephalic without any lesions or masses noted. Facial features are symmetric. Eyes: Extraocular muscles are intact. Conjunctivae were clear. NECK: Supple without any masses. Trachea midline no deviation. No JVD, CARDIAC: Regular rhythm, regular rate. S1/S2 are heard. No murmurs gallops or rubs. LUNGS: Clear to auscultation bilaterally. No wheeze, rhonchi or rales. No use of accessory muscles on inspiration or expiration. ABDOMEN: Soft, nontender. Nondistended. Bowel sounds heard in all 4 quadrants. No organomegaly or masses. Negative rebound, negative guarding EXTREMITIES: No edema, pulses are equal bilaterally. No cyanosis or clubbing NEUROLOGY: Mood and affect appear appropriate. Cranial nerves II through XII grossly intact. Moving all extremities, speech is clear A/P Problem List: (1) IVDU (intravenous drug user) ICD Code: F19.90 - Other psychoactive substance use, unspecified, uncomplicated Status: Acute (2) Bacteremia ICD Code: R78.81 - Bacteremia Assessment and Plan Bacteremia, high-grade Complicated with patient being IV drug user with Dilaudid Echocardiogram does not indicate any vegetation Blood cultures 4/4 with staph aureus Follow blood cultures negative for 3 days Status post vancomycin/Rocephin and now changed to Ancef Infectious disease following the patient, appreciate input. Per ID, if follow-up blood cultures come back negative, the patient should continue IV antibiotics for total of 10 days from negative blood culture Cannot have midline/PICC line placed until follow-up blood cultures are negative for 3 days and afebrile for 48 hrs. IV drug user with opiate addiction Patient wishes to be weaned off of narcotics at this time Changed to [place] 5 mg every 6 hours, continue to reduce dosage every 2-3 days Start Ibuprofen 600 mg Q 8 Hr for pain control Counseled patient on abstaining from opiate use, outpatient rehabilitation Constipation, resolved Mary-Colace one tablet twice daily Milk of magnesia as needed Fleet enema x1 DVT prevention Lucia Ulloa Dec 07, 2017 09:26
[2017-12-07 12:00] VITALS: BP 121/62; PULSE 83; RESP 17; TEMP 96.6; O2SAT 100
[2017-12-07 16:00] VITALS: BP 107/68; PULSE 94; RESP 17; TEMP 97.5; O2SAT 100
--- NOTE | 2017-12-07 18:14 | HHI.IDPN ---
Subjective Subjective Remarks ID FU DR SORIANO UP OOB,. LEFT SHOULDER WEAK LIMITED ROM (Ayesha Simmons) Remarks Low grade fevers (Sonja Soriano MD) Allergies: Coded Allergies: No Known Allergies (Verified Allergy, Unknown, 12/01/17) Objective . Vital Signs Date Time Temp Pulse Resp B/P (MAP) Pulse Ox O2 Delivery O2 Flow Rate FiO2 12/07/17 15:29 18 12/07/17 12:00 96.6 83 17 121/62 (81) 100 12/07/17 10:01 18 12/07/17 08:00 98.8 76 15 111/68 (82) 100 12/07/17 00:00 98.6 79 20 105/55 (72) 100 12/06/17 20:00 100.7 92 20 101/50 (67) 98 12/07/17 12/07/17 12/08/17 15:00 23:00 07:00 Intake Total 50 ml Balance 50 ml IV Total 50 ml # Voids 1 . Laboratory Tests Test 12/07/17 04:55 Creatinine 0.55 MG/DL Estimat Glomerular Filtration Rate 127 ML/MIN Physical Exam A/ OX3 PERRL NS CHEST: CTA CARDIAC: RRR ABD: SOFT ACTIVE EXT. LEFT SHOULDER NO WOUNDS, NOT ABLE TO LIFT MORE THAN 10-15 DEGREES (Ayesha Simmons) Assessment & Plan Diagnosis: (1) IVDU (intravenous drug user) ICD Codes: F19.90 - Other psychoactive substance use, unspecified, uncomplicated Status: Acute (2) Bacteremia ICD Codes: R78.81 - Bacteremia Plan: REPEAT BC NEGATIVE ECHO NEGATIVE SHOULDER MRI NEGATIVE FOR ABSCESS NEEDS PT TREATMENT COULD DO CEFTIN 500MG PO BID X 2 WEEKS ON DC (3) Shoulder sprain ICD Codes: S43.409A - Unspecified sprain of unspecified shoulder joint, initial encounter Status: Acute (Ayesha Simmons) Diagnosis: (1) IVDU (intravenous drug user) ICD Codes: F19.90 - Other psychoactive substance use, unspecified, uncomplicated Status: Acute (2) Bacteremia ICD Codes: R78.81 - Bacteremia Plan: REPEAT BC NEGATIVE . Echo negative Still with low grade fevers Follow repeat blood cultures and fevers Continue IV Cefazolin. If remains afebrile- can consider IV/IM Ceftriaxone as outpatient (3) Shoulder sprain ICD Codes: S43.409A - Unspecified sprain of unspecified shoulder joint, initial encounter Status: Acute (Sonja Soriano MD) Ayesha Simmons Dec 07, 2017 18:14 Sonja Soriano MD Dec 07, 2017 19:07
[2017-12-07] MEDS: ENOXAPARIN SODIUM 40 MG/0.4 ML SYRINGE SQ SCH (18:16)
[2017-12-07] MEDS: MAGNESIUM HYDROXIDE SUSP 30 ML CUP PO PRN (19:42)
[2017-12-07 20:00] VITALS: BP 105/56; PULSE 90; RESP 18; TEMP 99.4; O2SAT 98
[2017-12-07] MEDS: busPIRone HCL 5 MG TAB PO SCH (21:46)
[2017-12-08] VITALS: BP 113/65; PULSE 93; RESP 16; TEMP 97.8; O2SAT 98
[2017-12-08] MEDS: SODIUM CHLORIDE 0.9% FLUSH 10 ML FLUSH IV FLUSH PRN (00:59)
[2017-12-08] MEDS: ceFAZolin 2 GM PREMIX 50 ML IV SCH ×4 (00:59→23:18)
[2017-12-08] MEDS: ACETAMINOPHEN/HYDROcodone 325 MG/5 MG TAB PO PRN ×3 (04:16→18:52)
[2017-12-08] MEDS: IBUPROFEN 600 MG TAB PO SCH ×3 (05:32→20:24)
[2017-12-08 07:30] VITALS: BP 108/60; PULSE 91; RESP 20; TEMP 96.9; O2SAT 100
--- NOTE | 2017-12-08 09:25 | HHI.PR ---
Subjective Remarks Follow-up bacteremia secondary to IV drug use. He should seen and examined, sitting up in bed comfortably. Patient states she did not sleep well, just feels restless at night. Denies any pain. Expresses motivation to stop IV drugs upon discharge, has spoken with Jacqui Kenroy in [facility] and planning to live there postdischarge. Afebrile overnight. Eating well. Ambulating well. No acute changes. Objective Vitals Vital Signs Date Time Temp Pulse Resp B/P (MAP) Pulse Ox O2 Delivery O2 Flow Rate FiO2 12/08/17 07:30 96.9 91 20 108/60 (76) 100 12/08/17 00:00 97.8 93 16 113/65 (81) 98 12/07/17 20:00 99.4 90 18 105/56 (72) 98 12/07/17 16:00 97.5 94 17 107/68 (81) 100 12/07/17 15:29 18 12/07/17 12:00 96.6 83 17 121/62 (81) 100 12/07/17 10:01 18 I/O 12/07/17 12/07/17 12/07/17 12/08/17 12/08/17 12/08/17 07:00 15:00 23:00 07:00 15:00 23:00 Intake Total 770 ml 50 ml 800 ml 630 ml Balance 770 ml 50 ml 800 ml 630 ml Intake Oral 720 ml 800 ml 580 ml IV Total 50 ml 50 ml 50 ml # Voids 8 1 4 2 # Bowel Movements 0 0 Result Diagram: 12/07/17 0455 Imaging Last Impressions Shoulder MRI 12/02/17 0000 Signed Impressions: Service Date/Time: November 12:53 - CONCLUSION: Post surgical changes otherwise unremarkable without evidence of abscess. Fern Freire MD Chest X-Ray 12/01/17 0634 Signed Impressions: Service Date/Time: Friday, December 01, 2017 07:58 - CONCLUSION: Minimal bilateral perihilar infiltrates consistent with viral pneumonitis or minimal pulmonary vascular congestion. Clinical correlation is recommended. Jacky Guevara MD Thoracic Spine MRI 12/01/17 0000 Signed Impressions: Service Date/Time: Friday, December 01, 2017 09:07 - CONCLUSION: 1. Negative MRI of the thoracic spine Hernan Arroyo MD Shoulder X-Ray 12/01/17 0000 Signed Impressions: Service Date/Time: Friday, December 01, 2017 07:58 - CONCLUSION: No acute disease. Jacky Guevara MD Lumbar Spine MRI 12/01/17 0000 Signed Impressions: Service Date/Time: Friday, December 01, 2017 09:07 - CONCLUSION: 1. Small central protrusions as described above. There is no evidence of abscess. Hernan Arroyo MD Head CT 12/01/17 0000 Signed Impressions: Service Date/Time: Friday, December 01, 2017 08:13 - CONCLUSION: No acute disease. Jacky Guevara MD Cervical Spine MRI 12/01/17 0000 Signed Impressions: Service Date/Time: Friday, December 01, 2017 09:07 - CONCLUSION: Small central protrusion at C5-C6 without stenosis. There is no evidence of abscess. Hernan Arroyo MD Objective Remarks GENERAL: Well-developed, well-nourished, in no acute distress. alert and orientated HEENT: Head is normocephalic without any lesions or masses noted. Facial features are symmetric. Eyes: Extraocular muscles are intact. Conjunctivae were clear. NECK: Supple without any masses. Trachea midline no deviation. No JVD, CARDIAC: Regular rhythm, regular rate. S1/S2 are heard. No murmurs gallops or rubs. LUNGS: Clear to auscultation bilaterally. No wheeze, rhonchi or rales. No use of accessory muscles on inspiration or expiration. ABDOMEN: Soft, nontender. Nondistended. Bowel sounds heard in all 4 quadrants. No organomegaly or masses. Negative rebound, negative guarding EXTREMITIES: No edema, pulses are equal bilaterally. No cyanosis or clubbing NEUROLOGY: Mood and affect appear appropriate. Cranial nerves II through XII grossly intact. Moving all extremities, speech is clear A/P Problem List: (1) IVDU (intravenous drug user) ICD Code: F19.90 - Other psychoactive substance use, unspecified, uncomplicated Status: Acute Plan: \ (2) Bacteremia ICD Code: R78.81 - Bacteremia Assessment and Plan Bacteremia, high-grade Complicated with patient being IV drug user with Dilaudid Echocardiogram does not indicate any vegetation Blood cultures / with staph aureus Follow blood cultures negative for 4 days Status post vancomycin/Rocephin and now changed to [facility] Infectious disease following the patient, appreciate input. Per ID, if follow-up blood cultures come back negative, the patient should continue IV antibiotics for total of 10 days from negative blood culture Cannot have midline/PICC line placed until follow-up blood cultures are negative for 3 days and afebrile for 48 hrs. IV drug user with opiate addiction Patient wishes to be weaned off of narcotics at this time. Changed to [place] 5 mg every 6 hours, continue to reduce dosage every 2-3 days Continue Ibuprofen 600 mg Q 8 Hr for pain control Counseled patient on abstaining from opiate use, outpatient rehabilitation Constipation, resolved Mary-Colace one tablet twice daily Milk of magnesia as needed Fleet enema x1 Insomnia Anxiety Started BuSpar. Start insomnia medication for tonight. Follow effect. DVT prevention Lucia Ulloa Dec 08, 2017 09:25
[2017-12-08] MEDS: busPIRone HCL 5 MG TAB PO SCH ×2 (10:19→20:24)
[2017-12-08] MEDS: DOCUSATE SODIUM 50 MG/SENNA 8.6 MG TAB PO SCH ×2 (10:19→20:23)
[2017-12-08] MEDS: SODIUM CHLORIDE 0.9% FLUSH 10 ML FLUSH IV FLUSH SCH ×2 (10:19→20:24)
[2017-12-08 11:30] VITALS: BP 109/62; PULSE 78; RESP 20; TEMP 98.6; O2SAT 100
[2017-12-08 15:30] VITALS: BP 102/61; PULSE 89; RESP 20; TEMP 99.3; O2SAT 100
[2017-12-08 15:35] VITALS: TEMP 98.3
[2017-12-08] MEDS: ENOXAPARIN SODIUM 40 MG/0.4 ML SYRINGE SQ SCH (16:56)
[2017-12-08 20:00] VITALS: BP 107/74; PULSE 91; RESP 18; TEMP 99.4; O2SAT 99
[2017-12-08] MEDS: guaiFENesin/DEXTROMETHORPHAN 200 MG/20 MG/10 ML CUP PO PRN (20:24)
[2017-12-08] MEDS ORDERED: QUEtiapine FUMARATE 25 MG TAB PO SCH (21:00)
[2017-12-08] MEDS ORDERED: diphenhydrAMINE HCL 50 MG CAP PO ONE (23:15)
[2017-12-09] VITALS: BP 112/78; PULSE 82; RESP 16; TEMP 99.2; O2SAT 98
[2017-12-09] MEDS: IBUPROFEN 600 MG TAB PO SCH (05:16)
[2017-12-09 07:50] VITALS: BP 109/71; PULSE 79; RESP 20; TEMP 97.9; O2SAT 100
[2017-12-09] MEDS: ceFAZolin 2 GM PREMIX 50 ML IV SCH (08:28)
[2017-12-09] MEDS: busPIRone HCL 5 MG TAB PO SCH (08:28)
[2017-12-09] MEDS: DOCUSATE SODIUM 50 MG/SENNA 8.6 MG TAB PO SCH (08:28)
[2017-12-09] MEDS: SODIUM CHLORIDE 0.9% FLUSH 10 ML FLUSH IV FLUSH SCH (08:28)
[2017-12-09] MEDS: MAGNESIUM HYDROXIDE SUSP 30 ML CUP PO PRN (08:38)
[2017-12-09 09:08] LABS: CREATININE 0.64 MG/DL (0.50-1.00)
--- NOTE | 2017-12-09 09:08 | HHI.PR ---
Subjective Remarks Follow-up bacteremia secondary to IV drug use. Patient examined, lying in bed comfortably. States that she still restless overnight complaints of insomnia despite use of Seroquel. Patient is eager to get home to the [facility]. Spoke to infectious disease who is OK with discharge today on by mouth antibiotics as ordered. Afebrile greater than forty-eight hours. Eating well. Ambulating well. Still complains of left shoulder pain and limited range of motion. Objective Vitals Vital Signs Date Time Temp Pulse Resp B/P (MAP) Pulse Ox O2 Delivery O2 Flow Rate FiO2 12/09/17 00:00 99.2 82 16 112/78 (89) 98 12/08/17 20:00 99.4 91 18 107/74 (85) 99 12/08/17 15:35 98.3 12/08/17 15:30 99.3 89 20 102/61 (75) 100 12/08/17 15:17 20 12/08/17 11:30 98.6 78 20 109/62 (78) 100 I/O 12/08/17 12/08/17 12/08/17 12/09/17 12/09/17 12/09/17 07:00 15:00 23:00 07:00 15:00 23:00 Intake Total 630 ml 801 ml 50 ml Balance 630 ml 801 ml 50 ml Intake Oral 580 ml 801 ml IV Total 50 ml 50 ml # Voids 2 10 3 # Bowel Movements 0 2 Result Diagram: 12/07/17 0455 Imaging Last Impressions Shoulder MRI 12/02/17 0000 Signed Impressions: Service Date/Time: November 12:53 - CONCLUSION: Post surgical changes otherwise unremarkable without evidence of abscess. Fern Freire MD Chest X-Ray 12/01/17 0634 Signed Impressions: Service Date/Time: Friday, December 01, 2017 07:58 - CONCLUSION: Minimal bilateral perihilar infiltrates consistent with viral pneumonitis or minimal pulmonary vascular congestion. Clinical correlation is recommended. Jacky Guevara MD Thoracic Spine MRI 12/01/17 0000 Signed Impressions: Service Date/Time: Friday, December 01, 2017 09:07 - CONCLUSION: 1. Negative MRI of the thoracic spine Hernan Arroyo MD Shoulder X-Ray 12/01/17 0000 Signed Impressions: Service Date/Time: Friday, December 01, 2017 07:58 - CONCLUSION: No acute disease. Jacky Guevara MD Lumbar Spine MRI 12/01/17 0000 Signed Impressions: Service Date/Time: Friday, December 01, 2017 09:07 - CONCLUSION: 1. Small central protrusions as described above. There is no evidence of abscess. Hernan Arroyo MD Head CT 12/01/17 0000 Signed Impressions: Service Date/Time: Friday, December 01, 2017 08:13 - CONCLUSION: No acute disease. Jacky Guevara MD Cervical Spine MRI 12/01/17 0000 Signed Impressions: Service Date/Time: Friday, December 01, 2017 09:07 - CONCLUSION: Small central protrusion at C5-C6 without stenosis. There is no evidence of abscess. Hernan Arroyo MD Objective Remarks GENERAL: Well-developed, well-nourished, in no acute distress. alert and orientated HEENT: Head is normocephalic without any lesions or masses noted. Facial features are symmetric. Eyes: Extraocular muscles are intact. Conjunctivae were clear. NECK: Supple without any masses. Trachea midline no deviation. No JVD, CARDIAC: Regular rhythm, regular rate. S1/S2 are heard. No murmurs gallops or rubs. LUNGS: Clear to auscultation bilaterally. No wheeze, rhonchi or rales. No use of accessory muscles on inspiration or expiration. ABDOMEN: Soft, nontender. Nondistended. Bowel sounds heard in all 4 quadrants. No organomegaly or masses. Negative rebound, negative guarding EXTREMITIES: No edema, pulses are equal bilaterally. No cyanosis or clubbing, Limited range of motion on left upper extremity NEUROLOGY: Mood and affect appear appropriate. Cranial nerves II through XII grossly intact. Moving all extremities, speech is clear A/P Problem List: (1) IVDU (intravenous drug user) ICD Code: F19.90 - Other psychoactive substance use, unspecified, uncomplicated Status: Acute (2) Bacteremia ICD Code: R78.81 - Bacteremia Assessment and Plan Bacteremia, high-grade Complicated with patient being IV drug user with Dilaudid Echocardiogram does not indicate any vegetation Blood cultures 4/4 with staph aureus Follow blood cultures negative for 5 days Status post vancomycin/Rocephin and now changed to Ancef. Will discharge on three weeks of by mouth Cipro and three weeks of by mouth cefuroxime. Infectious disease: Unobtainable outpatient discharge. Recommendations for follow-up in three weeks in clinic. IV drug user with opiate addiction Patient requesting all narcotics to be DC'd. Continue Ibuprofen 600 mg Q 8 Hr for pain control Counseled patient on abstaining from opiate use, outpatient rehabilitation. He should displaying motivation. Constipation, resolved Mary-Colace one tablet twice daily Milk of magnesia as needed Fleet enema x1 Insomnia Anxiety Started BuSpar and Seroquel which was ineffective. Will try trazodone and Vistaril. Discharge Planning Agent to be discharged home today with three weeks of by mouth antibiotics. Follow-up with ID clinic in three weeks. Lucia Moody Dec 09, 2017 09:07
[2017-12-09 11:50] VITALS: BP 116/71; PULSE 84; RESP 20; TEMP 98.7; O2SAT 100
[2017-12-09] MEDS ORDERED: CEFU1TAB20 PO (11:58)
[2017-12-09] MEDS ORDERED: CIPR-9 PO (11:59)
--- NOTE | 2017-12-09 12:00 | HHI.DS ---
Discharge Summary Admission Date Dec 03, 2017 at 12:05 Discharge Date: Dec 09, 2017 Admitting Diagnosis SIRS; Poss PNA; IVDU (1) IVDU (intravenous drug user) ICD Code: F19.90 - Other psychoactive substance use, unspecified, uncomplicated Status: Acute (2) Bacteremia ICD Code: R78.81 - Bacteremia Procedures . Brief History - From Admission This patient is a 32-year-old female with minimal past medical history. She reports 3 days of nausea, vomiting, chills and myalgias worsen the left shoulder and left leg. She had a headache. She tried some TheraFlu for 1 day without improvement. She came to the emergency room where she was febrile temperature was 102. Patient does not have a white cell count but does have cough and congestion on exam as well as x-ray that is concerning for pneumonitis. Patient has a negative flu and has been recommended for observation due to her fever with history of drug use. She also reports left shoulder pain and inability to move the shoulder. Spinal x-rays are negative and CT of the head and neck are negative. Patient recommended for further evaluation treatment CBC/BMP: 12/09/17 0510 Significant Findings Laboratory Tests Test 12/07/17 04:55 12/09/17 05:10 Imaging Last Impressions Shoulder MRI 12/02/17 0000 Signed Impressions: Service Date/Time: November 12:53 - CONCLUSION: Post surgical changes otherwise unremarkable without evidence of abscess. Fern Freire MD Chest X-Ray 12/01/17 0634 Signed Impressions: Service Date/Time: Friday, December 01, 2017 07:58 - CONCLUSION: Minimal bilateral perihilar infiltrates consistent with viral pneumonitis or minimal pulmonary vascular congestion. Clinical correlation is recommended. Jacky Guevara MD Thoracic Spine MRI 12/01/17 0000 Signed Impressions: Service Date/Time: Friday, December 01, 2017 09:07 - CONCLUSION: 1. Negative MRI of the thoracic spine Hernan Arroyo MD Shoulder X-Ray 12/01/17 0000 Signed Impressions: Service Date/Time: Friday, December 01, 2017 07:58 - CONCLUSION: No acute disease. Jacky Guevara MD Lumbar Spine MRI 12/01/17 0000 Signed Impressions: Service Date/Time: Friday, December 01, 2017 09:07 - CONCLUSION: 1. Small central protrusions as described above. There is no evidence of abscess. Hernan Arroyo MD Head CT 12/01/17 0000 Signed Impressions: Service Date/Time: Friday, December 01, 2017 08:13 - CONCLUSION: No acute disease. Jacky Guevara MD Cervical Spine MRI 12/01/17 0000 Signed Impressions: Service Date/Time: Friday, December 01, 2017 09:07 - CONCLUSION: Small central protrusion at C5-C6 without stenosis. There is no evidence of abscess. Hernan Arroyo MD PE at Discharge GENERAL: Well-developed, well-nourished, in no acute distress. alert and orientated HEENT: Head is normocephalic without any lesions or masses noted. Facial features are symmetric. Eyes: Extraocular muscles are intact. Conjunctivae were clear. NECK: Supple without any masses. Trachea midline no deviation. No JVD, CARDIAC: Regular rhythm, regular rate. S1/S2 are heard. No murmurs gallops or rubs. LUNGS: Clear to auscultation bilaterally. No wheeze, rhonchi or rales. No use of accessory muscles on inspiration or expiration. ABDOMEN: Soft, nontender. Nondistended. Bowel sounds heard in all 4 quadrants. No organomegaly or masses. Negative rebound, negative guarding EXTREMITIES: No edema, pulses are equal bilaterally. No cyanosis or clubbing NEUROLOGY: Mood and affect appear appropriate. Cranial nerves II through XII grossly intact. Moving all extremities, speech is clear Pt update on day of discharge Follow-up bacteremia secondary to IV drug use. Patient examined, lying in bed comfortably. States that she still restless overnight complaints of insomnia despite use of Seroquel. Patient is eager to get home to the [facility]. Spoke to infectious disease who is OK with discharge today on by mouth antibiotics as ordered. Afebrile greater than forty-eight hours. Eating well. Ambulating well. Still complains of left shoulder pain and limited range of motion. Hospital Course Patient is a 32-year-old female who presented with worsening nausea, vomiting, chills and overall malaise with left shoulder pain., Patient was bacteremic with blood cultures positive 4 bottles with Staphylococcus aureus. Patient was placed on vancomycin IV and Rocephin IV and eventually changed over to Ancef IV. Upon discharge patient was given Cipro 500 mg by mouth 3 weeks and cefuroxime 500 mg by mouth twice a day 3 weeks. With recommendations to follow -up in outpatient clinic in three weeks. Echocardiogram was done during hospitalization which did not indicate any vegetation. During hospitalization patient expressed extreme interest and motivation to stop IV drug use in all narcotic use. Patient expresses eagerness to stay clean and admits to much support. Patient has been speaking with the [facility] who has secured her a bed and will provide her with additional support upon discharge. Patient educated about importance of stopping all IV drug use and opiates. Patient educated about following with the clinic in three weeks, and finishing all antibiotics and taking them as ordered. She also had a problem with insomnia and restlessness during hospitalization, given an order for trazodone and Vistaril for insomnia at night. She is stable at this time and agreeable to the plan Pt Condition on Discharge: Stable Discharge Disposition: Discharge Home Discharge Time: > 30 minutes Discharge Instructions DIET: Follow Instructions for: As Tolerated, No Restrictions Activities you can perform: Regular-No Restrictions Follow up Referrals: Infectious Disease - 3 Weeks PCP Follow-up - 1 Week Physical Therapy - 2-3 Days New Medications: Cefuroxime (Cefuroxime) 500 Mg Tab 500 MG PO BID for Infection for 21 Days, #42 TAB 0 Refills Ciprofloxacin (Cipro) 500 Mg Tab 500 MG PO BID for Infection for 21 Days, #42 TAB 0 Refills Hydroxyzine Pamoate (Vistaril) 50 Mg Cap 50 MG PO HS for insomnia for 30 Days, #30 CAP 0 Refills Trazodone (Trazodone) 50 Mg Tab 50 MG PO HS for Control Depression for 30 Days, #30 TAB 0 Refills Dextromethorphan-Guaifenesin (Dextromethorphan/Guaifene 10-100 mg/5Ml) 100 Mg- 10 Mg/5 Ml Syp 10 ML PO Q6H PRN for COUGH for 10 Days, #1 BOTTLE Lucia Moody Dec 09, 2017 12:00
--- NOTE | 2017-12-09 12:00 | HHI.DCPOC ---
Discharge Care Plan Diagnosis: (1) Bacteremia (2) IVDU (intravenous drug user) Goals to Promote Your Health * To prevent worsening of your condition and complications * To maintain your health at the optimal level Directions to Meet Your Goals Take your medications as prescribed Follow your dietary instruction Follow activity as directed Keep your appointments as scheduled Take your immunizations and boosters as scheduled If your symptoms worsen call your PCP, if no PCP go to Urgent Care Center or Emergency Room Smoking is Dangerous to Your Health. Avoid second hand smoke Call the 24-hour hour crisis hotline for domestic abuse at Lucia Moody Dec 09, 2017 12:00
[2017-12-09] MEDS ORDERED: DEXT10SY2 PO (12:06)
[2017-12-09] MEDS ORDERED: TRAZ50TA12 PO (12:10)
[2017-12-09] MEDS ORDERED: VIST50CA PO (12:10)
[2017-12-09] MEDS: ACETAMINOPHEN/HYDROcodone 325 MG/5 MG TAB PO PRN (12:17)
== END 2017-12-09 13:19 | disposition home or self-care (01) | DRG 871 ==
LOC: PHED 06:22 → PHEDA 12:48 → PH3A 14:10 → OBSVTOIN 12-03 12:05
PROVIDERS: ADMIT Hospitalist; ATTEND Hospitalist
DX: R78.81 Bacteremia (principal); J12.9 Viral pneumonia, unspecified; F11.20 Opioid dependence, uncomplicated; K59.00 Constipation, unspecified; S43.409A Unspecified sprain of unspecified shoulder joint, initial encounter; G47.00 Insomnia, unspecified; B95.61 Methicillin susceptible Staphylococcus aureus infection as the cause of diseases classified elsewhere; F10.10 Alcohol abuse, uncomplicated; F32.9 Major depressive disorder, single episode, unspecified; F41.9 Anxiety disorder, unspecified
CPT/HCPCS: 70450; 71045; 72156; 72157; 72158; 73030; 73221; 76937; 80048; 80053; 80202; 81001; 82550; 82565; 83605; 84484; 85025; 85610; 85652; 85730; 86308; 86403; 86747; 87040; 87147; 87186; 87205; 87804; 93005; 93306; 96361; 96365; 96366; 96367; 96372; 96375; 96376; A9579; G0378; J0690; J0696; J0780; J1170; J1200; J1650; J1885; J2405; J2543; J3370; J7030; J7050; Q0163